=== PATIENT | female | born 1990 | race Caucasian/White ===

== ENCOUNTER 2019-01-16 10:00 | Outpatient (CLI) | payer BC, SELFPAY ==
[2019-01-16 12:09] LABS: HCG Quant, Pregnancy 15334 mIU/mL (1-3)
== END 2019-01-16 10:20 ==
PROVIDERS: PCP Nurse Practitioner Family; Visit Provider Obstetrics & Gynecology
DX: Z34.91 Encounter for supervision of normal pregnancy, unspecified, first trimester (principal)
CPT/HCPCS: 36415; 86850; 86900; 86901; 84702

== ENCOUNTER 2020-03-18 08:51 | Outpatient (REF) | payer SELFPAY ==
[2020-03-21 07:35] LABS: Patient Race White; SARS-CoV-2 RNA Undetected (Undetected); SARS-CoV-2 Specimen Source Nasal
== END 2020-03-18 09:11 ==
LOC: NCHCN 08:51
PROVIDERS: PCP Nurse Practitioner Family; Visit Provider Family Medicine
DX: Z20.828 Contact with and (suspected) exposure to other viral communicable diseases (principal)
CPT/HCPCS: U0003

== ENCOUNTER 2020-03-21 11:05 | Outpatient (CLI) | payer BC, SELFPAY ==
[2020-03-21 11:37] LABS: Abs Immature Grans 0.02 10^3/uL (0.0-0.06); Absolute Basophil Count 0.02 10^3/uL (0.0-0.2); Absolute Eosinophil Count 0.08 10^3/uL (0.0-0.7); Absolute Lymphocyte Count 1.22 10^3/uL (1.2-3.4); Absolute Monocyte Count 0.32 10^3/uL (0.1-0.8); Absolute Neutrophil Count 5.86 10^3/uL (1.2-6.7); Basophils % 0.3; Eosinophils % 1.1; HCT 39.4 % (36.0-46.0); HGB 13.6 g/dL (11.2-15.7); Immature Grans % 0.3; Lymphocytes % 16.2; MCH 30.4 pg (27.0-33.0); MCHC 34.5 % (32.0-36.0); MCV 88.1 fL (80-95); MPV 11.3 fL (8.0-11.0); Monocytes % 4.3; Neutrophils % 77.8; Nucleated RBC 0 %; Platelet Count 171 10^3/uL (130-400); RBC 4.47 10^6/uL (3.93-5.22); RDW 13.2 % (11.7-14.6); WBC 7.52 10^3/uL (4.4-10.8)
[2020-03-21 11:49] LABS: Kit/Specimen SENT
[2020-03-22 16:05] LABS: Syphilis Total Ab w/Reflex Nonreactive (Nonreactive)
[2020-03-27 10:48] LABS: Rubella IgG Ab (UVM) Positive; Varicella IgG Antibody Positive
[2020-03-27 12:56] LABS: Hepatitis B Surface Ag Negative (Negative); Hepatitis C Ab w Rflx HCV PCR Negative (Negative)
[2020-03-27 13:14] LABS: HIV-1/2 Ag & Ab Screen Negative (Negative)
[2020-04-08 04:25] LABS: Specimen WB Whole Blood
== END 2020-03-21 11:25 ==
PROVIDERS: PCP Nurse Practitioner Family; Visit Provider Advanced Practice Midwife
DX: Z34.91 Encounter for supervision of normal pregnancy, unspecified, first trimester (principal)
CPT/HCPCS: 36415; 81329; 86787; 86803; 86850; 86900; 86901; 87340; 87389; 84443; 85025; 86762; 86780

== ENCOUNTER 2020-03-21 12:27 | Outpatient (REF) | payer BC, SELFPAY ==
--- NOTE | 2020-03-21 10:30 | PAPFT_PTH ---
PATIENT: Romy Camejo LOC: [facility] U#:[id number] AGE/SX: 29/F ROOM: RE03/21/[address]: Jennie Jeffrey RN : 1990 BED: DIS: 03/21/2020 SPEC #: [id number] RECD: 03/21/20 13:30 STATUS: CARLOS REQ #: [id number] CATHERINE: 03/21/20 10:[address]: Jennie Jeffrey DEPT: [facility] Cytology RECD BY: Kianna Tolbert Tissues: 1 - CX/ENDOCX FOR PAP SMEARS Procedures: PAP THIN PREP/UVM Screening Comments: [id number] (SANGER)
[2020-03-21 15:46] LABS: *AMPHETAMINES SCREEN URINE Negative (Negative); *BARBITURATES SCREEN URINE Negative (Negative); *BENZODIAZEPINES SCREEN URINE Negative (Negative); Cannabinoids THC Negative (Negative); Cocaine Screen,Urine Negative (Negative); METHADONE URINE SCREEN Negative (Negative); OPIATES URINE SCREEN Negative (Negative)
[2020-03-21 15:51] LABS: Tricyclic Antidepressants Negative (Negative)
[2020-03-26 12:23] LABS: Chlamydia Result Negative (Negative); GC Result Negative (Negative)
[2020-03-26 12:40] LABS: Buprenorphine Negative; Norbuprenorphine Negative
== END 2020-03-21 12:47 ==
LOC: LBN 12:27
PROVIDERS: PCP Advanced Practice Midwife; Visit Provider Advanced Practice Midwife
DX: Z12.4 Encounter for screening for malignant neoplasm of cervix (principal); Z34.91 Encounter for supervision of normal pregnancy, unspecified, first trimester
CPT/HCPCS: 80307; 87491; 87591; 88142; 87086

== ENCOUNTER 2020-05-09 03:50 | Outpatient (CLI) | payer BC, SELFPAY ==
--- NOTE | 2020-05-09 07:15 | DI.US_ITS ---
EXAM: US OB 2-3 TRIMESTER CLINICAL HISTORY: routine pnc,Z34.90. TECHNIQUE: Transabdominal obstetrical ultrasound performed. COMPARISON: No previous. FINDINGS: Transabdominal obstetrical ultrasound performed. FINDINGS: Number of fetuses: One. position: Breech heart rate: 165 bpm. Placental location: Posterior. No evidence of previa. Amniotic fluid index:. Amount of fluid is within normal limits. ANATOMICAL SURVEY: Within normal limits. BIOMETRIC DATA: BPD: 4.0cm HC: 15.8cm AC: 13.0cm FL: 2.8cm Cisterna Magna: 3.8 mm Cerebellum: 1.8 cm EFW: 248 grms 87% Composite Age: 18 weeks 4 days EDC by US: 10/06/2020 Heart Rate: 165BPM IMPRESSION: 1. Single live intrauterine gestation as above. 2. Normal anatomic survey. DATA REPOSITORY:
== END 2020-05-09 04:10 ==
PROVIDERS: PCP Advanced Practice Midwife; Visit Provider Advanced Practice Midwife
DX: Z34.92 Encounter for supervision of normal pregnancy, unspecified, second trimester (principal)
CPT/HCPCS: 76805

== ENCOUNTER 2020-05-09 11:40 | Outpatient (CLI) | payer BC, SELFPAY ==
[2020-05-12 11:21] LABS: AFP 48.1 ng/mL; Calculated age at EDD 30 years; Cigarette smoking status non-Smoker; GA used in risk estimate Scan estimate; IVF Pregnancy No; Initial or repeat testing Initial testing; Insulin dependent diabetes No; Maternal Weight 187 lbs; Number of Fetuses Singleton; Physician Phone Number 802-748-7300; Prev Pregnancy w/NTD No; RECOMMENDED FOLLOW UP None.; Results Summary Normal risk
== END 2020-05-09 12:00 ==
PROVIDERS: PCP Advanced Practice Midwife; Visit Provider Advanced Practice Midwife
DX: Z34.92 Encounter for supervision of normal pregnancy, unspecified, second trimester (principal); Z36.89 Encounter for other specified antenatal screening
CPT/HCPCS: 36415; 82105

== ENCOUNTER 2020-06-28 13:41 | Outpatient (CLI) | payer BC, SELFPAY ==
[2020-06-28 16:30] VITALS: BP 118/78; PULSE 86
[2020-06-28 16:31] VITALS: BP 118/76; PULSE 86; TEMP 207.7; TEMP 97.6
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
[2020-06-28 16:35] VITALS: BP 118/76; PULSE 86; TEMP 207.7; TEMP 97.6
[2020-06-28 16:46] VITALS: BP 118/76; PULSE 86; TEMP 36.4
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
[2020-06-28 16:52] VITALS: BP 118/76; PULSE 86; TEMP 207.7; TEMP 97.6
[2020-06-28 16:56] VITALS: BP 118/76; PULSE 86; TEMP 207.7; TEMP 97.6
== END 2020-06-28 16:50 | disposition home or self-care (01) ==
LOC: BCD 13:46 → OBS 16:01
PROVIDERS: PCP Advanced Practice Midwife; Visit Provider Advanced Practice Midwife
DX: O9A.212 Injury, poisoning and certain other consequences of external causes complicating pregnancy, second trimester (principal); Z3A.25 25 weeks gestation of pregnancy
CPT/HCPCS: 59025

== ENCOUNTER 2020-06-28 16:22 | Outpatient (CLI) | payer BC, SELFPAY | END 2020-06-28 16:23 | disposition home or self-care (01) | LOC: BCD 16:23 | PROVIDERS: PCP Advanced Practice Midwife; Visit Provider Advanced Practice Midwife | DX: R69 Illness, unspecified (principal) ==

== ENCOUNTER 2020-07-25 03:26 | Outpatient (CLI) | payer BC, SELFPAY ==
[2020-07-25 08:44] LABS: HCT 34.8 % (36.0-46.0); HGB 11.4 g/dL (11.2-15.7); MCH 30.6 pg (27.0-33.0); MCHC 32.8 % (32.0-36.0); MCV 93.5 fL (80-95); MPV 11.4 fL (8.0-11.0); Platelet Count 145 10^3/uL (130-400); RBC 3.72 10^6/uL (3.93-5.22); RDW 14.6 % (11.7-14.6); RDW-SD 49.7 fL; WBC 9.29 10^3/uL (4.4-10.8)
[2020-07-25 08:59] LABS: Glucose,1 Hr (Glucola) 153 mg/dL (80-140)
== END 2020-07-25 03:27 | disposition home or self-care (01) ==
LOC: LBO 03:26
PROVIDERS: PCP Advanced Practice Midwife; Visit Provider Advanced Practice Midwife
DX: Z34.93 Encounter for supervision of normal pregnancy, unspecified, third trimester (principal); Z3A.28 28 weeks gestation of pregnancy
CPT/HCPCS: 36415; 82950; 85027

== ENCOUNTER 2020-08-01 02:58 | Outpatient (CLI) | payer BC, SELFPAY ==
[2020-08-01 08:09] LABS: Glucose,1 Hr (Glucola) 133 mg/dL (80-140)
== END 2020-08-01 02:59 | disposition home or self-care (01) ==
LOC: LBO 02:58
PROVIDERS: PCP Nurse Practitioner Family; Visit Provider Advanced Practice Midwife
DX: Z34.93 Encounter for supervision of normal pregnancy, unspecified, third trimester (principal)
CPT/HCPCS: 36415; 82950

== ENCOUNTER 2020-08-20 03:24 | Outpatient (CLI) | payer BC, SELFPAY ==
[2020-08-20 08:47] LABS: Glucose,1 Hr (Glucola) 173 mg/dL (80-140)
--- NOTE | 2020-08-29 10:33 | W.DIABETESNO ---
Date of service: 08/29/20 Time of Service: 10:33 Diabetes Note NOTE: Financial Adviser left message and email for Romy to discuss nutritional strategies for diet controlled GDM. Romy emailed aligner typewriter back. Provided Romy with written material and discussed importance of QID finger sticks and importance of bringing blood sugar logs for visits. Romy is familiar with diabetes as daughter has type 1 DM. Will meet with Romy at next [facility] appt. Time Spent in Nutritional Counseling and Treatment: 0
--- NOTE | 2020-09-05 12:29 | W.DIABETESNO ---
Date of service: 09/05/20 Time of Service: 12:29 Diabetes Note NOTE: Met with Romy at [facility]. She was recently dx with GDM. Reviewed blood sugar logs, most levels wnl, most days QID testing. Provided written materials and blood sugar goals with meal plans. Overall, Romy is very knowlegeable about DM, exchanges and simple sugars. GDM diet controlled at this time. Time Spent in Nutritional Counseling and Treatment: 15
== END 2020-08-20 03:25 | disposition home or self-care (01) ==
LOC: LBO 03:24
PROVIDERS: PCP Nurse Practitioner Family; Visit Provider Advanced Practice Midwife
DX: Z34.93 Encounter for supervision of normal pregnancy, unspecified, third trimester (principal); Z3A.32 32 weeks gestation of pregnancy
CPT/HCPCS: 36415; 82950

== ENCOUNTER 2020-09-12 03:30 | Outpatient (CLI) | payer BC, SELFPAY ==
--- NOTE | 2020-09-12 07:15 | DI.US_ITS ---
EXAM: US OB SHAN WEIGHT CLINICAL HISTORY: 36 wk wt,FLUID CHECK,GEST DIABETES,O24.419. TECHNIQUE: Transabdominal obstetrical ultrasound performed. COMPARISON: US US OB 2-3 TRIMESTER from 05/09/2020 US US OB 2-3 TRIMESTER from 05/09/2020 FINDINGS:: Number of fetuses: One. position: Vertex. Placental location: Posterior. No evidence of previa. BIOMETRIC DATA: BPD: 90 mm = 36+ 3 weeks HC: 324mm = 36+ 5 weeks AC: 327mm = 36+ 4 weeks FL: 71 mm = 36+ 1 weeks EFW: 2948 Gms = 68% Composite Age: 36+ 3 weeks EDC: 07 Oct 2020 Heart Rate: 145BPM Amniotic fluid index: 20.7 cm. Amount of fluid is at the upper normal limits. IMPRESSION: size and weight are within the expected range. DATA REPOSITORY:
== END 2020-09-12 03:50 ==
PROVIDERS: PCP Nurse Practitioner Family; Visit Provider Advanced Practice Midwife
DX: O24.410 Gestational diabetes mellitus in pregnancy, diet controlled (principal); Z3A.36 36 weeks gestation of pregnancy
CPT/HCPCS: 76816

== ENCOUNTER 2020-09-12 16:43 | Outpatient (REF) | payer BC, SELFPAY ==
[2020-09-12 18:28] LABS: *AMPHETAMINES SCREEN URINE Negative (Negative); *BARBITURATES SCREEN URINE Negative (Negative); *BENZODIAZEPINES SCREEN URINE Negative (Negative); Cannabinoids THC Negative (Negative); Cocaine Screen,Urine Negative (Negative); METHADONE URINE SCREEN Negative (Negative); OPIATES URINE SCREEN Negative (Negative)
[2020-09-12 18:32] LABS: Tricyclic Antidepressants Negative (Negative)
[2020-09-18 13:08] LABS: Buprenorphine Negative ng/mL (Cutoff: 5.0); Norbuprenorphine Negative ng/mL (Cutoff: 2.5)
== END 2020-09-12 16:44 | disposition home or self-care (01) ==
LOC: LBN 16:43
PROVIDERS: PCP Nurse Practitioner Family; Visit Provider Advanced Practice Midwife
DX: Z34.93 Encounter for supervision of normal pregnancy, unspecified, third trimester (principal); Z3A.35 35 weeks gestation of pregnancy
CPT/HCPCS: 80307

== ENCOUNTER 2020-09-17 11:17 | Outpatient (REF) | payer BC, SELFPAY | END 2020-09-17 11:18 | disposition home or self-care (01) | LOC: LBN 11:17 | PROVIDERS: PCP Nurse Practitioner Family; Visit Provider Advanced Practice Midwife | DX: Z34.93 Encounter for supervision of normal pregnancy, unspecified, third trimester (principal); Z36.85 Encounter for antenatal screening for Streptococcus B; Z3A.36 36 weeks gestation of pregnancy | CPT/HCPCS: 87081 ==

== ENCOUNTER 2020-10-02 18:43 | Inpatient (IN) | payer BC, SELFPAY ==
[2020-10-02] VITALS (7 sets, daily range): BP systolic 120–135; BP diastolic 63–78; PULSE 57–111; RESP 18; TEMP 36.4–36.8
--- NOTE | 2020-10-02 16:56 | W.OBNST ---
Date of service: 10/02/20 Time of Service: 16:56 NST Evaluation Reason for NST Reasons for Nonstress Test: OTHER, SEE COMMENT Reason for NST Other: rule out labor Gestational Age Gestational Age in Weeks and Days: 38 Weeks and 5Days Test and Monitor Explained Test/Monitor Explained: Test Explained, Monitor Explained and Patient Verbalized Understanding Vital Signs Blood Pressure: 124/78 Pulse: 104 Temperature: 98.2 F Urine Results Urine Protein: Negative Urine Ketones: Negative Urine Glucose: Negative Urine Blood: Negative NST Information Date on Monitor: 10/02/20 Time on Monitor: 16:01 Date off Monitor: 10/02/20 Time off Monitor: 16:30 Total Time on Monitor: 29 NST Interventions: PO Hydration NST Evaluation Patient States Movement: Present FHR Baseline: 140 Variability: Moderate 6-25 bpm Accelerations: 10x10 Decelerations: None NST Results: Reactive Note NST Note Note: will have patient ambulate and reassess cervix for changes to determine if admission is indicated. NST is reactive and reassuring. CAT I. Contractions mild to moderate and 3-7 minutes apart. Cervix 3/70/-2 posterior and soft. NST Reviewed and Verified by: Basia Price
--- NOTE | 2020-10-02 18:45 | HPE_ITS ---
Date of service: 10/02/20 Time of Service: 18:45 Assessment and Plan Assessment and plan (1) Active labor at term: Start date: 10/02/20 Start time: 18:50 Status: Acute Assessment and plan: admit and do labs, will support labor and expect NVD. LAVINIA (2) Gestational diabetes mellitus (GDM) affecting second : Start date: 10/02/20 Start time: 18:50 Status: Acute Assessment and plan: will get CMP with initial labs, BG's have been well controlled throughout third trimester. KH OB-HPI Labor/Delivery History of Present Illness Reason for Visit: labor at term Chief Complaint: Uterine Contractions. ATILIO Calculator Estimated Delivery Date Method Current WG Current Estimate 10/11/20 Ultrasound #1 38w 5d Other Estimates 10/07/20 LMP (Certain) 39w 2d Comments: contractions began at 0100 this date but became more regular and intense this afternoon. No ROM or bloody show. Baby active. Has been well controlled GDM. Admitted after repeat VE on outpatient status with change from to 4.5//-2.KH History of Present Expected Delivery Route/Plan - CNM FOB/ - Isreal Almeida (2nd baby together) BB no circ GBS negative Would like to use the birthing tub GDM dx'ed at 32 wks: well controlled by diet, will plan IOL after 40 wks if undelivered Specific Issues/Plan 1. Daughter Lisseth Dx with Type 1 DM at 1.5yo. 2. CF & SMA neg, [place] low prob x3, male 3. 05/09/20: AFP= neg. al 4. Elevated 1-hr GTT - 153, 3-hr test recommended. Romy would like to repeat the 1-hr GTT. 4a. Repeat glucola result 133. Discussed borderline status of result, pt declines 3 hr GTT, agrees repeat 1 hr @ 32 wks 4b. Glucola at 32 wks is 173, declines 3 hr GTT, will begin QID home monitoring, ref'ed to dietary, RTO @ 33 wks for sugar review 4c. Glucose all WNL - testing 2-3 times per week. 5. Symphysis pubis injury/ Groin discomfort- referred to PT. seeing a chiropractor 6. [employer]. Update: keanu has weaned herself at about her 1 yr birthday 7. Plans to get covid vaccine while . Her partner will get second vaccine September 29. Assessment: History Reviewed & Current Informed Consent Informed Consent: Risk,Benefits,Alternatives Discussed Review of Systems All systems reviewed & are unremarkable except as noted in HPI and below PFSH Medical History Migraine Positive test Surgical History Dilation and curettage Family History (Updated 02/27/20 @ 11:01 by Amanda Rasheed MD) Mother Thyroid disorder Sister Thyroid disorder Daughter Diabetes Type 1 DM diagnosed @ 1.5yo. Social History (Updated 02/27/20 @ 14:18 by Amanda Rasheed MD) Smoking/Tobacco Use Status: Never Smoking risk assessment performed?: Yes Alcohol Intake: never Drug use: Never Household members: spouse, children and other Details: Maya-Jesus. 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 Date GA/Weeks # Outcome Route Wgt Sex Labor Lgth Anesthes ia Location Prov Complic 08/08/17 38 No Successful vaginal 8 lb 14 oz Female 12 hrs nvrh al 01/16/19 9 No Unsuccessful Delivery Date: 08/08/17 symphysis pubis and coccygeal pain after delivery. Back labor. Long second stage. Used the tub. Armando PinkBasia styles Delivery Date: 01/16/19 miscarriage. Pt reports 3 early 1st trimester SABs since 12/2018 Amanda Rasheed Allergies and Home Medications Allergies Allergy/AdvReac Type Severity Reaction Status Date / Time No Known Allergies Allergy Verified 10/01/20 08:30 Home Medications Medication Instructions Recorded Confirmed Type blood sugar diagnostic #100 ea 08/20/20 09/05/20 Rx blood-glucose meter #1 ea 08/20/20 09/05/20 Rx lancets 28 gauge #100 ea 08/20/20 09/05/20 Rx vitamin 1 tab PO DAILY tab-cap 08/20/20 09/05/20 History no.76-iron,carbonyl 29 mg iron-folic acid 1 mg tablet Exam Physical Exam Vital Signs Reviewed: Yes Constitutional Comments: working well with contractions every 2-4 minutes with moderate intensity. Detailed Labor and Delivery Exam Dilation: 4.5 Effacement (%): 80 station: -2 Cervix position: posterior Consistency: soft Cunningham Score: Cervical Points Exam 0 1 2 3 Dilation Closed 1-2cm 3-4 cm 5-6cm Effacement 0-30% 40-50% 60-70% 80% Consistency Firm Medium Soft Station -3 -2 -1,0 +1,+2 Position Posterior Mid Anterior CUNN[place]AM Score(Cervical Ripeness Score): 9 Amniotic Membrane Status: Intact Monitor Mode: Palpation Contraction Frequency(min): 2-4 Contraction Duration(sec): 60-90 Contraction Intensity: Moderate Fetus A Est. Weight: 7 lb 6 oz Assessment Note: currently off monitor to ambulate and be in shower, recent tracing was CAT I, reactive and reassuring. will obtain doppler FHT's Risk Assessment Risk for Shoulder Dystocia Historical/Initial OB: NEGATIVE FOR: Pelvic Abnormality, Pre- BMI>30, Previous Shoulder Dystocia or Previous Macrosomia 40 Weeks: NEGATIVE FOR: EFW> 4500 gms, Maternal Weight Gain >40lb or Post Dates Increased Risk?: No Counselin03/21/20 @ iob low risk al Date/Initial: 03/21/20 io low risk Delivery Plan @ 40 wks: 10/02/13 expect NVD. Risk for Pre-Eclampsia Daily Dose ASA Indicated: No Date Initiated/Initials: 03/21/20 al Yes, if one or more: NEGATIVE FOR: Hx Pre-E/Gest HTN, Chronic HTN, Multiple Gestation, Pre-gestational DM, Renal Disease, Systemic Lupus or APA Syndrome Yes, if 2 or more: NEGATIVE FOR: Nulliparity, Age>= 35 yrs, >10yr btwn pregnancies, BMI>30, ethinicty, Mother/Sister w/ Pre-E or Previous IUGR Risk for Post- Hemorrhage Initial: NEGATIVE FOR: Multiple Gestation, Previous PPH, Known Clotting Deficiency, Grand Multiparity or Anticoagulation At Risk?: No Counseled re: Active Management: Yes Date/Initials: 10/02/13KH Risks Reviewed Risks Reviewed Upon Admission: Yes
[2020-10-02 19:21] LABS: HCT 33.5 % (36.0-46.0); HGB 10.6 g/dL (11.2-15.7); MCH 27.9 pg (27.0-33.0); MCHC 31.6 % (32.0-36.0); MCV 88.2 fL (80-95); MPV 11.7 fL (8.0-11.0); Platelet Count 143 10^3/uL (130-400); RDW 15.9 % (11.7-14.6); RDW-SD 50.4 fL
[2020-10-02 19:33] LABS: ALT 17 U/L (14-59); AST 16 U/L (15-37); Albumin 2.8 g/dL (3.4-5.0); Alkaline Phosphatase 224 U/L (46-116); Anion Gap 12.9 mmol/L (3-11); BUN 8 mg/dL (7-18); Bilirubin, Total 0.5 mg/dL (0.2-1.0); CO2 21.1 mmol/L (21.0-32.0); CREATININE 0.7 mg/dL (0.55-1.02); Calcium 8.6 mg/dL (8.5-10.1); Chloride 105 mmol/L (98-107); Glucose 102 mg/dL (74-106); Potassium 3.7 mmol/L (3.5-5.1); Sodium 139 mmol/L (136-145); Total Protein 6.7 g/dL (6.4-8.2)
[2020-10-02 20:02] LABS: Source Nasal/Nares
[2020-10-02 20:39] LABS: COVID-19 PCR Negative (Negative)
--- NOTE | 2020-10-02 23:10 | W.PM.OBNL1 ---
Date of service: 10/02/20 Time of Service: 23:10 Informed Consent Informed Consent: Risk,Benefits,Alternatives Discussed Pelvic Exam Dilation: 5 Effacement (%): 90 station: -2 Cervix Position: posterior Consistency: soft Vaginal Exam Presentation: Cephalic Fetus A Heart Rate Baseline: 130 Presentation: Vertex Variability: Moderate (6-25 BPM) Categories: Category I Accelerations: 15 X 15 Decelerations: None Amniotic Membrane Status: Intact Assessment and Plan Assessment and plan (1) Labor, prolonged latent phase: Status: Acute Assessment and plan: will continue with expectant management, patient declines therapeutic rest. plan to reassess in 2 hours or prn. As maternal status is satisfactory and patient is 38w5d tech writer does not feel intervention is required at this time. KH Objective Abnormal lab results 10/02/20 10/02/20 Range/Units 19:11 19:11 RBC 3.80 L (3.93-5.22) 10^6/uL Hgb 10.6 L (11.2-15.7) g/dL Hct 33.5 L (36.0-46.0) % MCHC 31.6 L (32.0-36.0) % RDW 15.9 H (11.7-14.6) % MPV 11.7 H (8.0-11.0) fL Anion Gap 12.9 H (3-11) mmol/L Alkaline Phosphatase 224 H (46-116) U/L Albumin 2.8 L (3.4-5.0) g/dL Temp Pulse Resp BP 97.6 F 111 H 18 120/74 10/02/20 21:46 10/02/20 23:05 10/02/20 21:46 10/02/20 23:05 Laboratory Results WBC 9.40 10^3/uL (4.4-10.8) 10/02/20 19:11 RBC 3.80 10^6/uL (3.93-5.22) L 10/02/20 19:11 Hgb 10.6 g/dL (11.2-15.7) L 10/02/20 19:11 Hct 33.5 % (36.0-46.0) L 10/02/20 19:11 MCV 88.2 fL (80-95) 10/02/20 19:11 MCH 27.9 pg (27.0-33.0) 10/02/20 19:11 MCHC 31.6 % (32.0-36.0) L 10/02/20 19:11 RDW 15.9 % (11.7-14.6) H 10/02/20 19:11 Plt Count 143 10^3/uL (130-400) 10/02/20 19:11 MPV 11.7 fL (8.0-11.0) H 10/02/20 19:11 Sodium 139 mmol/L (136-145) 10/02/20 19:11 Potassium 3.7 mmol/L (3.5-5.1) 10/02/20 19:11 Chloride 105 mmol/L (98-107) 10/02/20 19:11 Carbon Dioxide 21.1 mmol/L (21.0-32.0) 10/02/20 19:11 Anion Gap 12.9 mmol/L (3-11) H 10/02/20 19:11 BUN 8 mg/dL (7-18) 10/02/20 19:11 Creatinine 0.7 mg/dL (0.55-1.02) 10/02/20 19:11 Estimated GFR/1.73 m2 >= 60.00 (mL/min/1.73m2) 10/02/20 19:11 Glucose 102 mg/dL (74-106) 10/02/20 19:11 Calcium 8.6 mg/dL (8.5-10.1) 10/02/20 19:11 Total Bilirubin 0.5 mg/dL (0.2-1.0) 10/02/20 19:11 AST 16 U/L (15-37) 10/02/20 19:11 ALT 17 U/L (14-59) 10/02/20 19:11 Alkaline Phosphatase 224 U/L (46-116) H 10/02/20 19:11 Total Protein 6.7 g/dL (6.4-8.2) 10/02/20 19:11 Albumin 2.8 g/dL (3.4-5.0) L 10/02/20 19:11 COVID-19 Source Nasal/nares 10/02/20 19:50 SARS-CoV-2 (PCR) Negative (Negative) 10/02/20 19:50 Patient ABO/Rh A Positive 10/02/20 19:11 Antibody Screen Negative 10/02/20 19:11 Subjective Interval history since last seen: states she feels contractions are getting stronger. Denies ROM or bloody show. Has been in tub for pain relief and is now in bed for tracing then plans to go to the shower. States she feels she has strength to continue with this pattern vs therapeutic rest. KH Results Hemoglobin/Hematocrit: Hgb 10.6 g/dL (11.2-15.7) L 10/02/20 19:11 Hct 33.5 % (36.0-46.0) L 10/02/20 19:11 Abnormal Lab Findings: Abnormal Labs 10/02/20 10/02/20 19:11 19:11 RBC 3.80 L Hgb 10.6 L Hct 33.5 L MCHC 31.6 L RDW 15.9 H MPV 11.7 H Anion Gap 12.9 H Alkaline Phosphatase 224 H Albumin 2.8 L
[2020-10-03] VITALS (11 sets, daily range): BP systolic 103–120; BP diastolic 54–71; PULSE 83–131; RESP 16–18; TEMP 36.7–37.1
--- NOTE | 2020-10-03 02:47 | OBVDS_ITS ---
Date of service: 10/03/20 Time of Service: 02:47 OB Labor/ Delivery Information Baby A Delivery Delivery Method: Spontaneaous Presentation: Vertex Cephalic Position: Vertex Vertex Position: Left Occipital Anterior Cord Description-Baby A: 3 Vessels Amniotic Fluid: Clear Estimated Blood Loss: 300 Delivery Outcome: Liveborn Complications: none Infant Transferred: Remains with Mother Note: Live male deliver CAREN over 1st degree midline perineal laceration after excellent bearing down efforts of Mother. Shoulders deliver easily and baby is brought onto Mother's abdomen. 9 at 1 minute and 9 at 10 minutes. 3 vessel cord noted. Cord was double clamped and cut by FOB when it ceased pulsations. Placenta delivered via rogers mechanism, intact. Fundus firms to U-2 with massage and 10 units pitocin IM. Laceration is hemostatic but patient preferred edges be brought together so area was infiltrated wtih 1 cc Lidocaine and repaired with 1 stitch of 3.0 Vicryl. [id number] cc. Sponge, needle and instrument count are correct. Mother and Father are shown placenta per their request and they intend to take it home to plant a tree with it. Will be sent to lab until discharge. Cord blood sent to lab as well. Positive family bonding is noted. See completed delivery summary for weight. Mother and baby are in satisfactory condition, expect normal PP course. Providers Nurse Wigs Salesperson: Basia Price Labor/Delivery Information Number of Babies in Womb: 1 Steroids Given: None Reason Steroids Not Administered: N/A Group Beta Strep: Negative Antibiotics Administered: No Stages of Labor Onset of Labor Date: 10/02/20 Onset of Labor Time: 02:00
[2020-10-03] MEDS: Acetaminophen 325 MG TAB 650 MG PO ×2 (05:00→12:09)
[2020-10-03] MEDS: Ibuprofen 600 MG TAB PO (05:00)
--- NOTE | 2020-10-03 08:59 | OBPPV_ITS ---
Date of service: 10/03/20 Time of Service: 08:59 Assessment and Plan Assessment and plan (1) care following vaginal delivery: Start date: 10/03/20 Start time: 09:02 Status: Acute Assessment and plan: continue present management. Plan discharge this afternoon. Patient will schedule a 2 week PP visit in office or by telehealth. LAVINIA Subjective Subjective Interval history: patient desires 12 hour PP discharge as her toddler at home is diabetic and it is best to keep routine the same. She has good support from who is off work for next 2 weeks. Has no complaints this morning. Tolerating regular diet well. Out of bed without assist. Minimal lochia. is going well.LAVINIA Patient comments: No complaints [place] baby status: Doing well Exam Physical Exam Vital signs: Temp Pulse Resp BP 98.1 F 83 18 103/60 10/03/20 07:55 10/03/20 07:55 10/03/20 07:55 10/03/20 07:55 Vital Signs Reviewed: Yes Constitutional Constitutional: no acute distress HEENT Exam HEENT Exam: Normal Neck Exam Neck Exam: Normal Respiratory Exam Respiratory Exam: Normal Cardiovascular Exam Cardiovascular Exam: Normal Fundal Exam Fundus: Below Umbilicus and Firm Rectal Exam Rectal Exam: Not Done Exam Patient deferred: external exam and perineal exam (normal) Extremities Exam Extremity Exam: Normal Skin Exam Skin Exam: Normal Neurological Exam Neurological Exam: Normal Psychiatric Exam Psychiatric Exam: Normal Results Hemoglobin/Hematocrit: Hgb 10.6 g/dL (11.2-15.7) L 10/02/20 19:11 Hct 33.5 % (36.0-46.0) L 10/02/20 19:11 Abnormal Lab Findings: Abnormal Labs 10/02/20 10/02/20 19:11 19:11 RBC 3.80 L Hgb 10.6 L Hct 33.5 L MCHC 31.6 L RDW 15.9 H MPV 11.7 H Anion Gap 12.9 H Alkaline Phosphatase 224 H Albumin 2.8 L
--- NOTE | 2020-10-03 10:49 | W.PM.OBDISCH ---
Date of service: 10/03/20 Time of Service: 10:49 DS: Diagnosis Discharge Diagnosis (1) care following vaginal delivery: Status: Acute Discharge Plan Disposition Patient Disposition: HOME Condition: Good Discharge Details Reason For Visit: labor at term Admit Date/Time: 10/02/20 18:43 Admit Provider: Basai Price Attending Provider: Basia Price Primary Care Provider: Sabrina Concepcion Hospital Course Hospital Course: Normal labor and delivery course. Uncomplicated PP course. Desires early 12 hour discharge from hospital and Pediatric providers agree to this plan. Home Meds and New Rx's Prescriptions: No Action (DME) blood-glucose meter [FreeStyle Lite Meter] Kit See Rx Instructions .ROUTE .MEDSUPPLY Qty: 1 RF: 0 (DME) FreeStyle Lite Strips Strip See Rx Instructions .ROUTE .MEDSUPPLY Qty: 100 RF: 3 (DME) lancets [FreeStyle Lancets] 28 gauge misc See Rx Instructions .ROUTE .MEDSUPPLY Qty: 100 RF: 3 Prenatabs Rx 29 mg iron- 1 mg tablet 1 tab PO DAILY RF: 0 Discharge Instructions Activity:: Activity as Tolerated Equipment/Supplies:: No Equipment Needed Diet:: As Tolerated Discharge Orders Discharge Orders: Discharge Order (Routine); Ordered 10/03/20 Ordered By: Basia Price OB:DS Summary Summary Vaginal Delivery Method: Spontaneaous Contraception Discussed Contraception Discussed: Yes Contraceptive Plan: IUD (planned for 6 weeks PP), [employer] Infant Gender-Baby A: Male Status at Discharge Functional status at discharge: independent ambulation Overall status at discharge: patient is back to baseline Mental Status: mental status grossly normal Speech and Movement: speech and movement normal Mood: congruent mood Affect: normal affect Exam Physical Exam Vital signs: Temp Pulse Resp BP 98.1 F 83 18 103/60 10/03/20 07:55 10/03/20 07:55 10/03/20 07:55 10/03/20 07:55 Vital Signs Reviewed: Yes Narrative: Normal VS noted. LAVINIA Constitutional Constitutional: no acute distress Comments: meeting all PP milestones, independent in her ADL's, has good support system at home.LAVINIA HEENT Exam HEENT Exam: Normal Neck Exam Neck Exam: Normal Breast Exam normal exam bilaterally: Breast Exam: Normal Nipple Exam: Normal Respiratory Exam Respiratory Exam: Normal Cardiovascular Exam Cardiovascular Exam: Normal Fundal Exam Fundus: Below Umbilicus and Firm Rectal Exam Rectal Exam: Not Done Exam Patient deferred: external exam (normal ) Extremities Exam Extremity Exam: Normal Skin Exam Skin Exam: Normal Neurological Exam Neurological Exam: Normal Psychiatric Exam Psychiatric Exam: Normal [facility] Medical History Migraine Positive test Surgical History Dilation and curettage Family History Mother Thyroid disorder Sister Thyroid disorder Daughter Diabetes Type 1 DM diagnosed @ 1.5yo. 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 Date GA/Weeks # Outcome Route Wgt Sex Labor Lgth Anesthesia Location Prov Complic 08/08/17 38 No Successful vaginal 8 lb 14 oz Female 12 hrs nvrh al 01/16/19 9 No Unsuccessful Delivery Date: 08/08/17 symphysis pubis and coccygeal pain after delivery. Back labor. Long second stage. Used the tub. Armando PinkBasia styles Delivery Date: 01/16/19 miscarriage. Pt reports 3 early 1st trimester SABs since 12/2018 Amanda Rasheed DS: Data Vitals/I&O Vitals and I&O: Vital Signs Temperature 98.1 F 10/03/20 07:55 Pulse 83 10/03/20 07:55 Respiratory Rate 18 10/03/20 07:55 Blood Pressure 103/60 10/03/20 07:55 Blood Pressure Mean 74 10/03/20 07:55 Pain Level 3 10/03/20 05:00 Intake & Output 10/02/20 10/02/20 10/03/20 11:59 23:59 11:59 Intake Total 1100 / 3100 2000 / 2000 Output Total 1500 / 1900 600 / 600 Balance -400 / 1200 1400 / 1400 Weight 207 lb Intake: Oral 1100 / 3100 2000 / 2000 Output: Urine 1500 / 1900 600 / 600 Other: Urine Color Yellow Data Completed and Pending Labs on day of discharge: Labs from last 24 hours 10/02/20 10/02/20 10/02/20 19:50 19:11 19:11 WBC RBC Hgb Hct MCV MCH MCHC RDW Plt Count MPV Sodium 139 Potassium 3.7 Chloride 105 Carbon Dioxide 21.1 Anion Gap 12.9 H BUN 8 Creatinine 0.7 Estimated GFR/1.73 m2 >= 60.00 Glucose 102 Calcium 8.6 Total Bilirubin 0.5 AST 16 ALT 17 Alkaline Phosphatase 224 H Total Protein 6.7 Albumin 2.8 L COVID-19 Source Nasal/nares SARS-CoV-2 (PCR) Negative Patient ABO/Rh A Positive Antibody Screen Negative 10/02/20 19:11 WBC 9.40 RBC 3.80 L Hgb 10.6 L Hct 33.5 L MCV 88.2 MCH 27.9 MCHC 31.6 L RDW 15.9 H Plt Count 143 MPV 11.7 H Sodium Potassium Chloride Carbon Dioxide Anion Gap BUN Creatinine Estimated GFR/1.73 m2 Glucose Calcium Total Bilirubin AST ALT Alkaline Phosphatase Total Protein Albumin COVID-19 Source SARS-CoV-2 (PCR) Patient ABO/Rh Antibody Screen
== END 2020-10-03 16:30 | disposition home or self-care (01) | DRG 807 ==
LOC: BCD 18:50 → OBS 18:50
PROVIDERS: Admitting Provider Advanced Practice Midwife; PCP Nurse Practitioner Family; Visit Provider Advanced Practice Midwife
DX: O24.410 Gestational diabetes mellitus in pregnancy, diet controlled (principal); Z37.0 Single live birth; Z3A.38 38 weeks gestation of pregnancy; O70.0 First degree perineal laceration during delivery
CPT/HCPCS: 36415; 80053; 85027; 86850; 86900; 86901; 87635; J3490

== ENCOUNTER 2021-06-29 09:32 | Outpatient (REF) | payer OTHER, SELFPAY ==
--- NOTE | 2021-06-29 08:30 | SKI_PTH ---
PATIENT: [facility]amejo [id number] AGE/SX: 30/F ROOM: RE06/29/[address]: Jaylen Dominguez : 1990 BED: DIS: 06/29/2021 SPEC #: [id number] RECD: 06/29/21 15:48 STATUS: CARLOS REAbelardo #: [id number] CATHERINE: 06/29/21 08:[address]: Jaylen Dominguez DEPT: Surgical Specimen RECD BY: Kianna Tolbert ENTERED: 06/29/21 15:49 SP TYPE: ABIODUN QUINN DR: Sabrina Concepcion Tissues: 1 - SKIN BIOPSY(SHAVE/PUNCH) 2 - SKIN BIOPSY(SHAVE/PUNCH) Procedures: SKIN LEVEL 4 Comments: [id number]
== END 2021-06-29 09:33 | disposition home or self-care (01) ==
LOC: NCHCN 09:32
PROVIDERS: PCP Nurse Practitioner Family; Visit Provider Family Medicine
DX: D22.4 Melanocytic nevi of scalp and neck (principal); D22.5 Melanocytic nevi of trunk
CPT/HCPCS: 88305

== ENCOUNTER 2021-12-25 20:19 | Emergency (ER) | payer OTHER, SELFPAY ==
[2021-12-25 20:26] VITALS: BP 124/72; PULSE 100; RESP 18; TEMP 36.6; O2SAT 99
[2021-12-25] MEDS: predniSONE 20 MG TAB 40 MG PO (21:40)
[2021-12-25] MEDS: Acetaminophen 325 MG TAB 650 MG PO (21:40)
--- NOTE | 2021-12-26 16:12 | W.ED.GENAD ---
Discharge Plan Disposition Patient Disposition: HOME Condition: Stable Discharge Details Clinical Impression: Thoracic radiculopathy Primary Care Provider: Sabrina Concepcion ED Provider: Kianna Sommer Home Meds and New Rx's Prescriptions: New prednisone 20 mg tablet 40 mg PO DAILY Qty: 10 0RF Discharge Instructions Additional Instructions: Refrain from heavy lifting follow-up with pcp on tuesday for reassessment Take Medrol this prescribed, you may fill this tomorrow You may take oxycodone as needed, this medication is addictive and can cause constipation, use caution while taking it Referrals: Sabrina Concepcion [Primary Care Provider] - Discharge Data Discharge Date/Time-TO BE ENTERED AT DEPARTURE: 12/25/21 21:59 Medical Decision Making Patient appears well, no evidence of cauda equina syndrome, concern for thoracic radiculopathy Discussed decreasing the amount of weight she is lifting daily Return precautions discussed Outpatient MRI without improvement of symptoms at the discretion of patient's provider Placed on Medrol Dosepak for home Mobic Tylenol as needed for discomfort Return precautions discussed and patient expressed understanding Medical Records Medical records reviewed: Yes I reviewed the patient's medical records. Lab Data Lab results reviewed: Yes I reviewed the patient's lab results. HPI General Date/Time Provider Initiated Documentation: 12/25/21 20:35. HPI Narrative: This 31-year-old female presents with report of intermittent worsening mid back pain which she has had for the past several months but worse in the past week. Patient states that she held her spine all day yesterday and today went to sit at work and the pain worsened dramatically. She states that she had tingling in her arms and legs. She denies any chest pain or shortness of breath. She denies any abdominal pain. She denies any pain with deep breathing or changes in bowel or bladder. Denies history of illicit drug use or fever. Worsened with position changes. Denies any groin numbness. Related Data Home Medications Medication Instructions Recorded Confirmed prednisone 20 mg tablet 40 mg PO DAILY #10 tabs 12/26/21 Previous Rx's Medication Instructions Recorded prednisone 20 mg tablet 40 mg PO DAILY #10 tabs 12/26/21 Allergies Allergy/AdvReac Type Severity Reaction Status Date / Time No Known Allergies Allergy Verified 12/25/21 20:28 General Stated Complaint: Nk/Back Pain KENNEY: 3 Review of Systems All systems reviewed & are unremarkable except as noted in HPI and below PFSH All Active Problems (Updated 12/25/21 @ 21:42 by GARCIA Sanches) Thoracic radiculopathy (Acute) Anemia, mild (Acute) History of gestational diabetes (Acute) General counseling and advice for contraceptive management (Acute) Lactating mother (Acute) Amenorrhea (Acute) (Acute) Gestational diabetes mellitus (GDM) affecting second (Acute) Active labor at term (Acute) Labor, prolonged latent phase (Acute) care following vaginal delivery (Acute) Elevated glucose level (Acute) Medical History Active labor at term Amenorrhea Gestational diabetes mellitus (GDM) affecting second Labor, prolonged latent phase Migraine Positive test Surgical History Dilation and curettage Family History Mother Thyroid disorder Sister Thyroid disorder Daughter Diabetes Type 1 DM diagnosed @ 1.5yo. Social History Smoking/Tobacco Use Status: Never Smoking risk assessment performed?: Yes Alcohol Intake: never Drug use: Never Substance use type: does not use Household members: spouse, children and other Details: Maya-Johnathan. 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 Date GA/Weeks # Preg Succ Route Wgt Sex Labor Lgth Anesthesia Location Prov Complic 08/08/17 38 No vaginal 4025.632 g Female 12 hrs nvrh al 01/16/19 9 No 10/03/20 38 No vaginal Male AMANDA Aldana Delivery Date: 08/08/17 Last Updated by: Basia Mulkern, CNM symphysis pubis and coccygeal pain after delivery. Back labor. Long second stage. Used the tub. Armando Delivery Date: 01/16/19 Last Updated by: Amanda Rasheed M.D. miscarriage. Pt reports 3 early 1st trimester SABs since 12/2018 Delivery Date: 10/03/20 Last Updated by: LAYNE Abdalla Exam Const General: cooperative, comfortable and no acute distress Eyes Pupils: PERRL Resp Effort & Inspection: normal respiratory effort Auscultation: clear to auscultation bilaterally Cardio Rate: regular rate GI Inspection: normal to inspection Other: non-tender no abdominal bruit or pulsatile mass, no cva tenderness Back/Spine/Pelvis Back/spine/pelvis image: 1. tenderness with palpation Skin General skin exam: no rashes or lesions noted Neuro General: patient alert Gait: antalgic Motor: muscle tone normal throughout and strength 5/5 throughout Sensory Exam: no sensory deficits noted Other: negative SLR bilaterally neg babinski bilaterally dtr's intact to bilateral upper and lower extremities Extrem Other: distal pulses intact Course Vital Signs Vital signs: Vital Signs Temperature 36.6 C 12/25/21 20:26 Pulse 100 H 12/25/21 20:26 Respiratory Rate 18 12/25/21 20:26 Blood Pressure 124/72 12/25/21 20:26 Pulse Oximetry 99 12/25/21 20:26 Temperature 36.6 C 12/25/21 20:26 Pulse 100 H 12/25/21 20:26 Respiratory Rate 18 12/25/21 20:26 Respiratory Effort 12/25/21 20:34 Blood Pressure 124/72 12/25/21 20:26 Pulse Oximetry 99 12/25/21 20:26 Pain Level 4 12/25/21 20:26
== END 2021-12-25 21:59 | disposition home or self-care (01) ==
PROVIDERS: Emergency Provider Physician Assistant; PCP Nurse Practitioner Family
DX: M54.14 Radiculopathy, thoracic region (principal)
CPT/HCPCS: 99283; 99284; J7512

== ENCOUNTER 2021-12-28 09:37 | Inpatient (IN) | payer OTHER, SELFPAY ==
[2021-12-28] VITALS (11 sets, daily range): BP systolic 103–125; BP diastolic 64–74; PULSE 63–97; RESP 14–18; TEMP 36.6–38.6; O2SAT 97–100
--- NOTE | 2021-12-28 11:00 | RT.EKG_ITS ---
APPROVED REPORT Exam: Resting ECG Reason for Exam: burning pain from epigastrum Patient Location: E HR:75 bpm ECG Measurements Heart Rate 75 AXIS RI 148 P 58 QRSd 98 QRS 54 QT 383 T 34 QTc 428 Conclusion Sinus rhythm...normal P axis, V-rate 60- 99 sinus rhythm, normal axis, normal intervals, t wave inversion III
--- NOTE | 2021-12-28 11:04 | ED.GENADUL_ITS ---
Discharge Plan Disposition Patient Disposition: [facility] INPATIENT Condition: Poor Discharge Details Chief Complaint: Abd Prob Clinical Impression: Acute gallstone pancreatitis Admit Date/Time: 12/28/21 15:25 Admit Provider: Linda Hernandez Attending Provider: Linda Hernandez ED Provider: Lidia Mercedes Discharge Instructions Activity:: Activity as Tolerated Equipment/Supplies:: No Equipment Needed Diet:: low fat Discharge Orders Discharge Orders: Discharge Order (Routine); Ordered 12/31/21 Ordered By: Moy Almeida Discharge Data Discharge Date/Time-TO BE ENTERED AT DEPARTURE: 12/28/21 16:16 Medical Decision Making Patient is a pleasant 31-year-old female, presenting today with chief complaint of epigastric pain. She was seen here 2 days ago and was diagnosed with thoracic radiculopathy. She reports that at that time she was having more purely upper back pain. States that she gets this monthly just prior or with the start of her menses. States is not worse with any food. States that the abdominal discomfort began this morning and describes it as a stabbing discomfort. Is concerned that it may be her pancreas. She denies any alcohol intake. No change with p.o.. Pain does not radiate into the back. Is actively nauseated. States that she does have a history of acid reflux. Did take Tums last night with minimal improvement. This morning states that the oxycodone prescribed to her for her back pain as well of the prednisone and she felt that this may have exacerbated her abdominal upset. On exam, patient appears nontoxic. She is hemodynamically stable. She does appear quite anxious. She is holding her stomach. Lungs are clear, normal cardiac exam. No CVA tenderness. She has epigastric pain with palpation. She has no pain on the right upper quadrant, left upper quadrant or elsewhere about the abdomen. No peritoneal findings. Exam and history is most consistent with acid reflux. This does seem to exacerbate associated with her menstrual cycle. She states that she is about to begin her menses anytime. She does not have any lower abdominal pain. She reports that she is not sexually active. Her exam and history is not suggestive of ectopic . She has no change in urinary habits. Had 2 soft bowel movements this morning. Bowel movements and emesis have been without blood. This is not exacerbated by certain types of food she has no right upper quadrant pain, I do not find this associated with gallbladder etiology. It does radiate into the chest, will obtain EKG but this is nonexertional and seems to be elicited more with epigastric palpation, I find cardiac etiology such as ACS very unlikely. Patient reports her nausea is improved. Pain in her stomach is improved but she is now endorsing some more back pain. She reports the pain is lower than it had been when she was here recently. Labs reviewed. Patient is a mild leukocytosis of 11.4. Stable H&H. CMP significant for T bili of 2.6. AST 189. ALT 575, alk phos 188, lipase over 15,000. Albumin normal. This presentation is likely associate with some type of obstruction of the ampulla Vater leading to an acute pancreatitis transaminitis. Will obtain CT imaging. I did discuss this with the patient. Again, and usual presentation and she reports she is been having some intermittent symptoms of this for the past 3 months, again associated with times of her menses. She has also not noted any fluctuation with p.o. intake. Patient is now reporting that she is breast-feeding. Child is 4 months and is taking solid foods. I have offered a breast pump to continue on her breast milk supply because we will be giving her opiates, I will have her abstain from the use due to her breast-feeding. Contacted by radiologist, they advised that she has fluid around pancreas consistent with pancreatitis, stone and inflammation in the GB. Have pushed images to [facility], have requested GI consult, patient likely needs ERCP. Consulted with gastroenterology, Dr. Calderon, at [facility]. They advised to hold on ERCP at this time given the patient's acute pancreatitis. Recommending continuing IV antibiotics. If the patient labs are downtrending tomorrow, they advised the ERCP is likely likely not needed. She is advised that after reviewing the imaging she is questioning patient may have just recently passed the stone and may not necessarily warrant an ERCP. However, she did advise that if she did not need an ERCP she should have a cholecystectomy. However, if her labs remain stable we will continue to increase, patient will need an ERCP in the next 1 to 2 days as reviewed down and back procedure at [facility] with subsequent cholecystectomy performed clear. They would like to be kept in the loop by the medical transport regardless of the patient's improvement status. Consulted with Dr. Hernandez who agrees to admission. Patient is on her third liter of fluids and has received IV narcotics. She is resting comfortably. We do have consultants with pump here as patient is actively breast-fe eding. Patietn clear of plan to continue to monitor here with possible intervention at [facility] if labs do not improve. Either way, will need cholecystectomy. She is in agreement with this plan. Spoke with her as well. HPI General Date/Time Provider Initiated Documentation: 12/28/21 09:52 . Limitations to Documentation: no limitations . Information obtained by: patient, RN notes reviewed and old records reviewed . History of Present Illness 31 year old F presents to the emergency department with the chief complaint of epigastric pain, described as severe, with intensity rated at 10. Quality is described as burning, and is localized to the abdomen. Patient reports radiation to back (intermittent back pain, sometimes associated with abdomen). Patient started experiencing this day(s) and it has been constant. No relieving factors improve symptom(s), No exacerbating factors reported . Patient notes chest pain, loss of appetite, malaise and nausea/vomiting; denies cough, diaphoresis, fever/chills, headaches, rash and shortness of breath. Patient did receive the following treatments prior to arrival, other (prednisone, oxycodone) Related Data Home Medications Medication Instructions Recorded Confirmed Unknown [No Known Home Meds] 01/06/22 01/06/22 Allergies Allergy/AdvReac Type Severity Reaction Status Date / Time No Known Allergies Allergy Verified 01/06/22 09:38 General Stated Complaint: Abd Prob KENNEY: 3 Review of Systems Constitutional Constitutional: Reports as per HPI, Denies chills, Denies fever(s) and Denies he adache(s) ENT Ears, Nose, Mouth, and Throat: Denies headache(s) Cardiovascular Cardiovascular: Reports as per HPI, Denies chest pain and Denies dyspnea Respiratory Respiratory: Reports as per HPI, Denies cough and Denies dyspnea Gastrointestinal Gastrointestinal: Reports as per HPI Musculoskeletal Musculoskeletal: Reports as per HPI Integumentary/Breasts Skin/Breast: Reports as per HPI and Denies rash Neurologic Neurologic: Reports as per HPI and Denies headache(s) PFSH All Active Problems (Updated 01/11/22 @ 05:40 by GARCIA Ackerman) Acute gallstone pancreatitis (Acute) Cholelithiasis and cholecystitis without obstruction (Acute) Thoracic radiculopathy (Acute) Appears to be secondary to pancreatitis History of gestational diabetes (Acute) General counseling and advice for contraceptive management (Acute) Lactating mother (Acute) Amenorrhea (Acute) (Acute) Active labor at term (Acute) Labor, prolonged latent phase (Acute) care following vaginal delivery (Acute) Elevated glucose level (Acute) Medical History Gestational diabetes mellitus (GDM) affecting second Migraine Positive test Surgical History Dilation and curettage Family History Mother Thyroid disorder Sister Thyroid disorder Daughter Diabetes Type 1 DM diagnosed @ 1.5yo. 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 Date GA/Weeks # Preg Succ Route Wgt Sex Labor Lgth Anesth esia Location [facility] 08/08/17 38 No vaginal 4025.632 g Female 12 hrs nv rh al 01/16/19 9 No 10/03/20 38 No vaginal Male AMANDA Aldana Delivery Date: 08/08/17 Last Updated by: Basia Geller CNM symphysis pubis and coccygeal pain after delivery. Back labor. Long second stage. Used the tub. Armando Delivery Date: 01/16/19 Last Updated by: Amanda Rasheed M.D. miscarriage. Pt reports 3 early 1st trimester SABs since 12/2018 Delivery Date: 10/03/20 Last Updated by: LAYNE Abdalla Exam Const General: cooperative, healthy appearing, uncomfortable, no acute distress and well developed Nutritional Appearance: average body habitus and well nourished Orientation: alert and awake [facility] Head: normal to inspection Mouth: moist mucous membranes Resp Effort & Inspection: normal respiratory effort, able to speak in complete sentences and no respiratory distress Auscultation: clear to auscultation bilaterally, no rales, no rhonchi and no wheezes Cardio Rate: regular rate Rhythm: regular rhythm Heart Sounds: S1 normal and S2 normal GI Inspection: normal to inspection, no abdominal wall ecchymosis, no edema and non-distended Palpation: soft, no hepatosplenomegaly, not firm, no guarding, no pulsatile masses, not rigid and tender in the epigastrum; not at McBurney's point, Kwan's sign negative and with no rebound tenderness Percussion: normal to percussion Auscultation: hypoactive bowel sounds Back/Spine/Pelvis Back: no CVA tenderness Skin General skin exam: no rashes or lesions noted Trauma: no lacerations or abrasions Neuro General: patient alert and patient awake Cognition: normal cognition Speech: speech normal Gait: normal gait Psych Appearance: grossly normal and well kempt Mental Status: mental status grossly normal Speech and Movement: speech and movement normal Course Vital Signs Vital signs: Vital Signs Temperature 36.6 C 12/28/21 09:43 Pulse 97 H 12/28/21 09:43 Respiratory Rate 18 12/28/21 09:43 Blood Pressure 119/74 12/28/21 09:43 Pulse Oximetry 100 12/28/21 09:43 Temperature 36.6 C 12/28/21 09:43 Temperature Source Temporal Artery Scan 12/28/21 09:43 Pulse 97 H 12/28/21 09:43 Respiratory Rate 18 12/28/21 09:43 Blood Pressure 119/74 12/28/21 09:43 Blood Pressure Position Sitting 12/28/21 09:43 Pulse Oximetry 100 12/28/21 09:43 Oxygen Delivery Method Room Air 12/28/21 09:43 Oxygen Flow Rate 0 12/28/21 09:43
[2021-12-28] MEDS: Mylanta Suspension 30 ML CUP PO (11:28)
[2021-12-28] MEDS: Lactated Ringers 1,000 ML 1000 ML IV ×2 (11:28→13:10)
[2021-12-28] MEDS: Pantoprazole 40 MG VIAL IVP (11:28)
[2021-12-28] MEDS: Ondansetron 4 MG/2 ML VIAL IVP (11:28)
[2021-12-28 11:41] LABS: Abs Immature Grans 0.02 10^3/uL (0.0-0.06); Absolute Basophil Count 0.03 10^3/uL (0.0-0.2); Absolute Eosinophil Count 0.01 10^3/uL (0.0-0.7); Absolute Lymphocyte Count 0.89 10^3/uL (1.2-3.4); Absolute Monocyte Count 0.84 10^3/uL (0.1-0.8); Basophils % 0.3; Eosinophils % 0.1; HCT 45.5 % (36.0-46.0); HGB 15.5 g/dL (11.2-15.7); Immature Grans % 0.2; Lymphocytes % 7.8; MCH 29.6 pg (27.0-33.0); MCHC 34.1 % (32.0-36.0); MCV 87 fL (80-95); MPV 11.7 fL (8.0-11.0); Monocytes % 7.3; Neutrophils % 84.3; Platelet Count 179 10^3/uL (130-400); RBC 5.23 10^6/uL (3.93-5.22); RDW 13.8 % (11.7-14.6); RDW-SD 43.6 fL; WBC 11.47 10^3/uL (4.4-10.8)
[2021-12-28 11:42] LABS: Absolute Neutrophil Count 9.67 10^3/uL (1.2-6.7)
[2021-12-28 11:56] LABS: ALT 575 U/L (14-59); AST 189 U/L (15-37); Albumin 4.1 g/dL (3.4-5.0); Alkaline Phosphatase 188 U/L (46-116); Anion Gap 8.9 mmol/L (3-11); BUN 12 mg/dL (7-18); Bilirubin, Total 2.6 mg/dL (0.2-1.0); CO2 26.1 mmol/L (21.0-32.0); CREATININE 0.8 mg/dL (0.55-1.02); Calcium 9.1 mg/dL (8.5-10.1); Chloride 106 mmol/L (98-107); Glucose 119 mg/dL (74-106); Magnesium 1.9 mg/dL (1.8-2.4); Potassium 3.7 mmol/L (3.5-5.1); Sodium 141 mmol/L (136-145); Total Protein 7.6 g/dL (6.4-8.2)
--- NOTE | 2021-12-28 12:00 | DI.CT_ITS ---
Exam(s) CT ABDOMEN PELVIS W EXAM: CT ABDOMEN PELVIS W CLINICAL HISTORY: pancreatitis, transaminitis, ? obstructing stone. TECHNIQUE: Imaging Protocol: Axial computed tomography images with coronal and sagittal reformatted images were created and reviewed CONTRAST MATERIAL: Intravenous: Omnipaque 100cc Oral: None COMPARISON: No exams were available for comparison FINDINGS: VISUALIZED LUNG BASES: No nodules nor pleural effusions evident. ABDOMEN: There is no ascites. LIVER: There are no focal hepatic lesions evident. Mild prominence of intrahepatic ducts. CBD diame ter is upper normal. GALLBLADDER/BILIARY: There radiopaque calculi seen on the dependent wall of the gallbladder near the gallbladder neck. Gallbladder is somewhat distended but not edematous and there is no pericholecysti c fluid. There is no obvious radiopaque calculus in the cystic duct nor within the nondilated CBD. PANCREAS: There is an envelope of fluid around the entire pancreas, consistent with pancreatitis. Pa ncreatic duct is not dilated. There are no apparent created calcifications evident. No obvious panc reatic mass. SPLEEN: Spleen size upper normal. No splenic lesions. Splenic and portal veins are patent. Splenic and portal veins are patent. ADRENALS: There are no significant adrenal masses. KIDNEYS:There is a tiny 5 millimeters cyst in the superior pole the left kidney. No other significan t focal renal findings. No solid renal masses. No calculi nor hydronephrosis.. ABDOMINAL AORTA: Abdominal aorta is not enlarged. LYMPH NODES:There is no retroperitoneal nor paraaortic adenopathy. ABDOMINAL WALL: No evidence of significant anterior abdominal wall nor inguinal hernia. GI: There is no evidence of bowel obstruction, free air, nor abscess. PELVIS: GI: No evidence of appendicitis.No evidence of sigmoid diverticulitis. LYMPH NODES: There is no intrapelvic nor inguinal adenopathy. REPRODUCTIVE: Follicular cysts noted in the ovaries. Dominant cyst in left ovary measuring 0.3 x 1.6 cm. URINARY BLADDER: No calculi nor obvious masses evident OSSEOUS: No significant osseous lesions. IMPRESSION: 1. There is an MLO both fluid around the entire pancreas, consistent with acute pancreatitis. No obv ious pancreatic necrosis. 2. Cholelithiasis. Also slight prominence of the gallbladder lumen and intrahepatic ducts. CBD diam eter itself is upper normal and there is no obvious radiopaque calculus within the CBD. There is a t iny 1-2 millimeter hyperdensity in the duodenal wall at junction with CBD which either represents a t iny calculus or possible opacified vessel at this level. 3. No evidence of splenic vein thrombosis, portal vein thrombosis, nor SMV thrombosis. No evidence o f pseudoaneurysm of the gastroduodenal artery. Called by myself to the ER provider. RADIATION DOSE DELIVERED: 1,015.4mGy.cm Total DLP DATA REPOSITORY: All CT scans at this facility are submitted to the National Radiology Data Registry (NRDR) Dose Index Registry (DIR) with the [employer] (ACR). RADIATION OPTIMIZATION: All CT scans at this facility use at least one of these dose optimization te chniques: automated exposure control; mA and/or kV adjustment per patient size (includes targeted exa ms where dose is matched to clinical indication); or iterative reconstruction.
[2021-12-28 12:05] LABS: Lipase > 15000 U/L (73-393)
[2021-12-28 12:46] LABS: Bilirubin Negative (Negative); Blood Negative (Negative); Clarity Clear (Clear); Glucose Negative (Negative); Ketones Negative (Negative); Leukocyte Esterase Negative (Negative); Nitrite Negative (Negative); Specific Gravity 1.015 (1.005-1.025); Urobilinogen 0.2 EU/dL (Up TO 0.2); pH 6.5 (5-8)
--- NOTE | 2021-12-28 12:55 | PDOC.ERCMPRO ---
- If Service Date Differs Date of service: 12/28/21 Time of Service: 12:56 Care Management Progress Note SBIRT screen: negative. Pt reports no substance use or mental health symptoms.
[2021-12-28] MEDS: Omnipaque 350 MG/ML 100 ML BTL IJ (13:44)
[2021-12-28] MEDS: HYDROmorphone 2 MG/ML VIAL 1 MG IVP (14:54)
--- NOTE | 2021-12-28 14:59 | NUR.NOTE ---
Nursing Note:1ml low iv push given over 2 minutes - pt stated she felt hot and dizzy after 2-3 minutes. vitals normal - 121/76 p67 99% on room air. not nauseous. pt states it's definetly working. I's like a release. pt has call willis and will continue to monitor closely
[2021-12-28 16:08] LABS: Source Nasal/Nares
[2021-12-28] MEDS: Normal Saline 1,000 ML 125 ML IV (16:36)
[2021-12-28] MEDS: Normal Saline Flush 10 ML SYR IVP (16:36)
--- NOTE | 2021-12-28 17:05 | LC_ITS ---
Date of service: 12/28/21 Time of Service: 15:30 Note Note: Referred to Romy per ED - parent in ED, anticipates transfer to [facility] and surgery tomorrow for gall bladder/pancreatitis, Parent is , desires to pump to preserve her supply and order from surgeon is to pump/dump. Visited /c Mckenna in the ED - c/o intermittent back pain since September. Has a 14 month old child named Dale who is 4-6 times a day. Romy is concerned that her milk supply will decrease if she is not . Romy states current comfort citing recent narcotic, she is comfortable then has intermittent discomfort r/t gall bladder. REinforced the importance of supporting her feeding preferences in balance with her health. Recognized that her surgical provider has ordered her to pump/dump, parent questions if she can feed her child and deferred to pediatric provider. O ffered Romy a breast pump, she accepted and desired to pump now, instructed in use Expressed 30 ml. Advised Romy that her body is smart and likely her supply will be diminished as she is sick, routine stimulation will increase the likelihood that her supply will return to it's former volume. Encouraged balanced efforts and supported her efforts to maintain supply. Romy desires the option to feed the milk to her son if possible or to feed him at breast if they come to visit. Deferred to her child's copy center associate. Plan to look up meds, and [facility], screen shots of med lists and links. Phoned [facility], spoke /c Anh and confirmed process. Plan to refrigerate milk dated/timed milk until plan is clarified by providers. Romy agreed /c POC. Pumped x 20 min then pump sent with her to [facility]. NOte to Dr. Torres: Kena Andres is a patient that has been admitted to [facility], anticipating surgery and the provider has requested that she pump/dump because of her medications and potential exposure for her child. Her child Dale is 14 months old. Her admitting diagnosis is gall stone pancreatitis. Romy requested a pump and inquired if it was OK to feed her child, give surgeon recommendations to pump/dump. I explained that we usually defer to the copy center associate caring for the .? I have gone through her current med list, copied the summaries from [employer], attached links.? We loaned her one of the hospital?s pumps. Parent would like to keep milk and possibly feed milk, or more likely feed [place] at breast if they visit. Her surgeon has ordered pump/dump. May I ask you to clarify with [facility] if Romy can keep the milk at this point or to follow surgeon?s pump/dump. Bev Thank you! Medications 12/28/2021 @1629 ? Lovenox 40 mg sc o?? Limited information indicates that maternal?enoxaparin?in doses up to 40 mg daily do not to cause any adverse effects in breastfed infants. Because its large molecular weight of 2000 to 8000 daltons,?enoxaparin?would not be expected to be excreted into breastmilk or to be absorbed from breastmilk by the infant. No special precautions are required. o?? https://www.ncbi.nlm.nih.gov/books/PUC432520/ o? Famotidine 20 mg IV o?? Famotidine?doses in breastmilk result in infant dosages that are lower than those used in infants.?Famotidine?would not be expected to cause any adverse effects in breastfed infants. No special precautions are required. o?? https://www.ncbi.nlm.nih.gov/books/BDN293821/ o? Morphine 2 mg IV o?? Epidural?morphine?given to mothers for postcesarean section analgesia results in trivial amounts of?morphine?in their colostrum and milk. Intravenous or oral doses of maternal?morphine?in the immediate period result in higher milk levels than with epidural?morphine. Labor pain medication may delay the onset of . Maternal use of oral narcotics during can cause drowsiness, central nervous system depression and even , although low-dose?morphine?might be preferred over other opiates.[1 https://www.ncbi.nlm.nih.gov/books/SCA581534/ ]? http s://www.ncbi.nlm.nih.gov/books/n/lactmed/drugandlactglossary/def-item// ?infants seem to be particularly sensitive to the effects of even small dosages of narcotic analgesics. Once the mother's milk comes in, it is best to provide pain control with a nonnarcotic analgesic and limit maternal intake of?morphine ?to 2 to 3 days at a low dosage with close monitoring, especially in the outpatient setting.[2 https://www.ncbi.nlm.nih.gov/books/FGV156893/ ] If the baby shows signs of increased sleepiness (more than usual), difficulty , breathing difficulties, or limpness during maternal?morphine?use, a physician should be contacted immediately. Some evidence suggests that IV ketorolac, oral ibuprofen and acetaminophen as part of a multimodal post- section analgesia reduces percentage of mothers who fail exclusive compared to patient-controlled IV?morphine-based analgesia o?? https://www.ncbi.nlm.nih.gov/books/JXM870609/ o? Ondansetron 4 mg o?? frequently used for nausea during and after section, usually in doses of 4 to 8 mg intravenously.[1 https://www.ncbi.nlm.nih.gov/books/FTQ157587/ -4 https://www.ncbi.nlm.nih.gov/books/FOS410493/ ] Use during and after section appears to not affect the onset of .[1 https://www.ncbi.nlm.nih.gov/books/PAZ919172/ ,5 https:// www.ncbi.nlm.nih.gov/books/NZZ014746/ ] No adverse infant effects have been reported in this setting or among women who received?ondansetron? in a pharmacokinetic study. Use of?ondansetron?in nursing mothers beyond the immediate setting has not been studied well, but the drug is labeled for use in infants as young as 1 month of age. A computer model demonstrated that the amounts in milk are much less than this dose. No special precautions are required. o?? https://www.ncbi.nlm.nih.gov/books/ATI729645/ o? Mylanta o?? Although no data are available on the use of simethicone during , it is known that simethicone is not absorbed orally. Therefore, it cannot be transferred to breastmilk. It is also used safely in breastfed infants.[1 https://www.ncbi.nlm.nih.gov/books/YTJ418032/ ,2 https://www.ncbi.nlm.nih.gov/books/RMI909961/ ] No special precautions are required o?? https://www.ncbi.nlm.nih.gov/books/QMS214838/ o?? o?? A study on the use of magnesium hydroxide during found no adverse reactions in breastfed infants. Intravenous magnesium increases milk magnesium concentrations only slightly. Oral absorption of magnesium by the is poor, so maternal magnesium hydroxide is not expected to affect the breastfed infant's serum magnesium. Magnesium hydroxide supplementation during might delay the onset of , but it can be taken during and no special precautions are required o?? https://www.ncbi.nlm.nih.gov/books/UQF439527/ o? Hydromorphone o?? Limited data indicate that?hydromorphone?is excreted into breastmilk in small amounts, but large maternal dosages have caused central nervous system depression. In general, maternal use of oral narcotics during can cause infant drowsiness, central nervous system depression and even .?Hydromorphone?use should be limited in nursing mothers.[1]? https://www.ncbi.nlm.nih.gov/books/n/lactmed/drugandlactglossary/def- item// ?infants seem to be particularly sensitive to the effects of even small dosages of narcotic analgesics. Once the mother's milk comes in, it is best to provide pain control with a nonnarcotic analgesic and limit maternal intake of?hydromorphone?to a few days at a low dosage with close infant monitoring. If the baby shows signs of increased sleepiness (more than usual), difficulty , breathing difficulties, or limpness, a physician should be contacted immediately o?? https://www.ncbi.nlm.nih.gov/books/QHZ457555/ o? Iohexol o?? Limited information indicates that maternal doses of?iohexol?up to 45.3 gr ams (containing 21 grams of iodine) produce low levels in milk. In addition, because?iohexol?is poorly absorbed orally, it is not likely to reach the bloodstream of the infant or cause any adverse effects in breastfed infants. The animal anatomist states that withholding for 10 hours after administration to minimize the exposure of the infant; however, guidelines developed by several professional organizations state that need not be disrupted after a nursing mother receives an iodine-containing contrast medium. o?? https://www.ncbi.nlm.nih.gov/books/NZJ720405/ o? Pantoprazole o?? Maternal?pantoprazole?doses of 40 mg daily produce low levels in milk and would not be expected to cause any adverse effects in breastfed infants. o?? https://www.ncbi.nlm.nih.gov/books/XWL835665/ ? Prednisone o?? Amounts of?prednisone?in breastmilk are very low. No adverse effect have been reported in breastfed infants with maternal use of any corticosteroid during . With high maternal doses, the use of prednisolone instead of?prednisone?and avoiding for 4 hours after a dose theoretically should decrease the dose received by the infant. However, these maneuvers are not necessary with short-term use. High doses might occasionally cause temporary loss of milk supply. o?? https://www.ncbi.nlm.nih.gov/books/EKZ546999/ Results Weight/I&O Weight Change: Weight 83.915 kg I&O: 12/27/21 12/27/21 12/28/21 12/28/21 11:59 23:59 11:59 23:59 Intake Total 1999 Balance 1999 Intake: IV 1999 Other: Weight 83.915 kg
[2021-12-28 17:14] LABS: COVID-19 PCR Negative (Negative)
[2021-12-28] MEDS: ACETAMINOPHEN 1,000 MG/100 ML BTL 400 MG IVPB (17:41)
[2021-12-28] MEDS: Enoxaparin 40 MG/0.4 ML SYR SC (17:42)
[2021-12-28] MEDS: FAMOTIDINE 20 MG in Normal Saline 100 ML 400 MG IVPB (18:53)
--- NOTE | 2021-12-28 20:45 | W.PM.HP.N ---
Assessment and Plan Assessment and plan (1) Lactating mother: Status: Acute (2) Gestational diabetes mellitus (GDM) affecting second : Status: Acute (3) Acute gallstone pancreatitis: Status: Acute Assessment and plan: - I discussed with the patient and her the etiology of gallstones. Most likely this is related to her recent 14 months ago. This is also probably been the cause of her back pain. Although it is somewhat of an atypical presentation with it mainly just being back pain. We will repeat her labs tomorrow. If her bilirubin is still elevated then we will get a MRCP. If that shows any signs of choledocholithiasis we will refer her down for an ERCP. Continue supportive care for her pancreatitis. She does not have much of an appetite. Other than her lipase and LFTs, or other lab work is reassuring/essentially normal. We will allow her pancreatitis to resolve. She does have moderate edema noted on CT scan. We do want this to resolve prior to any surgical intervention. Continue with conservative medical management and supportive care Ransons score is 0 (4) Cholelithiasis and cholecystitis without obstruction: Status: Acute History of Present Illness Narrative: Patient is a 31-year-old female who presented today with actually complaints of back pain. She was seen in the ER on 12/26 and diagnosed with thoracic radiculopathy and started on prednisone. Today she came in complaining of back pain and associated nausea and vomiting and was found to have a lipase greater than 15,000 and elevated LFTs and total bilirubin. She was also found to have a large stone in the neck of the gallbladder. She states the symptoms have been going on for several months and seem to be more associated with purely back pain. The pain appears to be associated with her menstrual cycle and worse just prior to getting her period. Curiously, there does not seem to be any dietary association, or association with any abdominal pain. She has 2 children. I cannot note anywhere in her chart that she is on any active control. She has a negative test in the ER. Clinically she notes that she is felt very bloated lately. She currently feels mildly nauseated and does not have much of an appetite. She notes early satiety. She denies any diarrhea. She is still breast-feeding. She complains more of back pain then she does abdominal pain. I did review her CT scans. She does appear to have a mild pancreatitis. Pancreatic ducts and common bile ducts appear to be normal on CT scan. She does not appear to have a significant cholecystitis. Her past medical history is pretty unremarkable. Her son is 14 months old. She is not currently on any medications, other than the steroids the ER started her on for back pain 2 days ago and vitamins., No known drug allergies. She is a non-smoker nondrinker. The only surgery she has had is D&C for a missed AB. She had no problems with anesthesia. Review of Systems All systems reviewed & are unremarkable except as noted in HPI and below PFSH All Active Problems (Updated 12/28/21 @ 21:42 by Linda Hernandez DO) Cholelithiasis and cholecystitis without obstruction (Acute) Acute gallstone pancreatitis (Acute) Thoracic radiculopathy (Acute) Appears to be secondary to pancreatitis History of gestational diabetes (Acute) General counseling and advice for contraceptive management (Acute) Lactating mother (Acute) Amenorrhea (Acute) (Acute) Gestational diabetes mellitus (GDM) affecting second (Acute) Active labor at term (Acute) Labor, prolonged latent phase (Acute) care following vaginal delivery (Acute) Elevated glucose level (Acute) Medical History Migraine Positive test Surgical History Dilation and curettage Family History Mother Thyroid disorder Sister Thyroid disorder Daughter Diabetes Type 1 DM diagnosed @ 1.5yo. 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 Date GA/Weeks # Preg Succ Route Wgt Sex Labor Lgth Anesthesia Location Prov Complic 08/08/17 38 No vaginal 4025.632 g Female 12 hrs nvrh al 01/16/19 9 No 10/03/20 38 No vaginal Male AMANDA Aldana Delivery Date: 08/08/17 Last Updated by: Basia Geller CNM symphysis pubis and coccygeal pain after delivery. Back labor. Long second stage. Used the tub. Armando Delivery Date: 01/16/19 Last Updated by: Amanda Rasheed M.D. miscarriage. Pt reports 3 early 1st trimester SABs since 12/2018 Delivery Date: 10/03/20 Last Updated by: LAYNE Abdalla Camejo Almeida [facility] Allergies and Home Medications Allergies Allergy/AdvReac Type Severity Reaction Status Date / Time No Known Allergies Allergy Verified 12/25/21 20:28 Home Medications Medication Instructions Recorded Confirmed Type prednisone 20 mg tablet 40 mg PO DAILY #10 tabs 12/26/21 12/28/21 Rx Exam HENKY Head: normal to inspection Ears: hearing grossly normal bilaterally Teeth and gingiva: dentition normal Eyes General: appearance normal, both eyes and all related structures Sclera: sclerae normal Other: She does not appear overtly jaundiced Resp Effort & Inspection: normal respiratory effort and able to speak in complete sentences Auscultation: clear to auscultation bilaterally Cardio Palpation: normal PMI Rate: regular rate GI Inspection: normal to inspection Palpation: soft, no hernias and tender (Minimal epigastric left upper quadrant tenderness) Auscultation: hypoactive bowel sounds Other: Patient notes more pain in the mid and right thoracic area rather than abdominal pain Neuro General: patient alert, patient awake, patient oriented x3, oriented, moves all extremities, no focal motor deficits and CN's II-XI intact bilaterally Cranial Nerves: CN's II-XI intact bilaterally Cognition: normal cognition Speech: speech normal Extrem General: no clubbing, cyanosis or edema Results Labs Result diagrams: 12/29/21 06:35 12/29/21 06:35 Labs: Laboratory Results - last 24 hr 12/28/21 12/28/21 12/28/21 11:24 11:24 12:39 WBC 11.47 H RBC 5.23 H Hgb 15.5 Hct 45.5 MCV 87 MCH 29.6 MCHC 34.1 RDW 13.8 Plt Count 179 MPV 11.7 H Immature Gran % 0.2 Neutrophils % 84.3 Lymphocytes % 7.8 Monocytes % 7.3 Eosinophils % 0.1 Basophils % 0.3 Nucleated RBC % 0.0 Absolute Neutrophils 9.67 H Absolute Lymphocytes 0.89 L Absolute Monocytes 0.84 H Absolute Eosinophils 0.01 Absolute Basophils 0.03 Sodium 141 Potassium 3.7 Chloride 106 Carbon Dioxide 26.1 Anion Gap 8.9 BUN 12 Creatinine 0.8 Estimated GFR/1.73 m2 >= 60.00 Glucose 119 H Calcium 9.1 Magnesium 1.9 Total Bilirubin 2.6 H AST 189 H ALT 575 H Alkaline Phosphatase 188 H Total Protein 7.6 Albumin 4.1 Lipase > 33291 H Urine Color Yellow Urine Clarity Clear Urine pH 6.5 Ur Specific [place] 1.015 Urine Protein Negative Urine Ketones Negative Urine Blood Negative Urine Nitrite Negative Urine Bilirubin Negative Urine Urobilinogen 0.2 Ur Leukocyte Esterase Negative Urine Glucose Negative COVID-19 Source SARS-CoV-2 (PCR) 12/28/21 16:04 WBC RBC Hgb Hct MCV MCH MCHC RDW Plt Count MPV Immature Gran % Neutrophils % Lymphocytes % Monocytes % Eosinophils % Basophils % Nucleated RBC % Absolute Neutrophils Absolute Lymphocytes Absolute Monocytes Absolute Eosinophils Absolute Basophils Sodium Potassium Chloride Carbon Dioxide Anion Gap BUN Creatinine Estimated GFR/1.73 m2 Glucose Calcium Magnesium Total Bilirubin AST ALT Alkaline Phosphatase Total Protein Albumin Lipase Urine Color Urine Clarity Urine pH Ur Specific [place] Urine Protein Urine Ketones Urine Blood Urine Nitrite Urine Bilirubin Urine Urobilinogen Ur Leukocyte Esterase Urine Glucose COVID-19 Source Nasal/Nares SARS-CoV-2 (PCR) Negative Last Vital Signs Temp 38.6 C H 12/28/21 17:41 Pulse 63 12/28/21 16:49 Resp 17 12/28/21 16:49 BP 114/73 12/28/21 16:49 Pulse Ox 99 12/28/21 16:49
[2021-12-29] MEDS: ACETAMINOPHEN 1,000 MG/100 ML BTL 400 MG IVPB ×5 (05:35→23:26)
[2021-12-29] MEDS: FAMOTIDINE 20 MG in Normal Saline 100 ML 400 MG IVPB ×2 (05:44→17:28)
[2021-12-29 07:03] LABS: Abs Immature Grans 0.02 10^3/uL (0.0-0.06); Absolute Basophil Count 0.03 10^3/uL (0.0-0.2); Absolute Eosinophil Count 0.04 10^3/uL (0.0-0.7); Absolute Lymphocyte Count 0.89 10^3/uL (1.2-3.4); Absolute Monocyte Count 0.36 10^3/uL (0.1-0.8); Absolute Neutrophil Count 4.86 10^3/uL (1.2-6.7); Basophils % 0.5; Eosinophils % 0.6; HCT 38.5 % (36.0-46.0); HGB 12.8 g/dL (11.2-15.7); Immature Grans % 0.3; Lymphocytes % 14.4; MCH 29.8 pg (27.0-33.0); MCHC 33.2 % (32.0-36.0); MCV 90 fL (80-95); MPV 11.4 fL (8.0-11.0); Monocytes % 5.8; Neutrophils % 78.4; Platelet Count 143 10^3/uL (130-400); RDW 13.7 % (11.7-14.6); RDW-SD 44.7 fL
[2021-12-29 07:20] VITALS: BP 102/62; PULSE 65; RESP 19; TEMP 36.6; O2SAT 97
[2021-12-29 07:21] LABS: ALT 357 U/L (14-59); AST 86 U/L (15-37); Alkaline Phosphatase 201 U/L (46-116); Anion Gap 12.2 mmol/L (3-11); BUN 14 mg/dL (7-18); Bilirubin, Total 3.4 mg/dL (0.2-1.0); CO2 21.8 mmol/L (21.0-32.0); CREATININE 0.7 mg/dL (0.55-1.02); Calcium 8.1 mg/dL (8.5-10.1); Chloride 106 mmol/L (98-107); Glucose 72 mg/dL (74-106); Potassium 3.3 mmol/L (3.5-5.1); Sodium 140 mmol/L (136-145); Total Protein 5.8 g/dL (6.4-8.2)
[2021-12-29 07:34] LABS: Calculated LDL 80 mg/dL (<100); Cholesterol 136 mg/dL (<200); HDL Cholesterol 30 mg/dL (40-60); Triglyceride 134 mg/dL (<150)
[2021-12-29 07:41] LABS: Lipase > 15000 U/L (73-393)
[2021-12-29] MEDS: POTASSIUM CHLORIDE 10 MEQ/100 ML BAG 100 MEQ IVPB (08:57)
[2021-12-29] MEDS: Normal Saline Flush 10 ML SYR IVP (08:58)
--- NOTE | 2021-12-29 09:47 | W.PM.PROGNOT ---
Date of Service Date of service: 12/29/21 Time of Service: 09:48 Assessment and Plan Assessment and plan (1) Cholelithiasis and cholecystitis without obstruction: Status: Acute (2) Acute gallstone pancreatitis: Status: Acute Assessment and plan: MRCP is scheduled for later today. Continue NPO status Continue Pain Control Potassium is being repleted Zofran is ordered for nausea Encouraged activity OOB and ambulation as tolerated Patient has severe claustrophobia and could not tolerate being in the MRI. She is still having a lot of pain and not feeling any significantly better. Her T bilirubin did go up overnight. We will repeat her labs this afternoon and if her bilirubin is not trending down then I will talk to GI about doing a ERCP. (3) Thoracic radiculopathy: Status: Acute Subjective Subjective Interval history since last seen: Patient reports that she feels a little better today but is having some nausea. She expressed this may be secondary to hunger. Exam Const General: cooperative and comfortable Orientation: alert and oriented x3 Resp Effort & Inspection: normal respiratory effort, no audible wheezes and no cough GI Inspection: normal to inspection Palpation: soft, no guarding and tender in the epigastrum, in the LUQ and in the RUQ Objective Last Vital Signs Temp 36.6 C 12/29/21 07:20 Pulse 65 12/29/21 07:20 Resp 19 12/29/21 07:20 BP 102/62 12/29/21 07:20 Pulse Ox 97 12/29/21 07:20 Laboratory Results - last 24 hr 12/28/21 12/28/21 12/28/21 11:24 11:24 12:39 WBC 11.47 H RBC 5.23 H Hgb 15.5 Hct 45.5 MCV 87 MCH 29.6 MCHC 34.1 RDW 13.8 Plt Count 179 MPV 11.7 H Immature Gran % 0.2 Neutrophils % 84.3 Lymphocytes % 7.8 Monocytes % 7.3 Eosinophils % 0.1 Basophils % 0.3 Nucleated RBC % 0.0 Absolute Neutrophils 9.67 H Absolute Lymphocytes 0.89 L Absolute Monocytes 0.84 H Absolute Eosinophils 0.01 Absolute Basophils 0.03 Sodium 141 Potassium 3.7 Chloride 106 Carbon Dioxide 26.1 Anion Gap 8.9 BUN 12 Creatinine 0.8 Estimated GFR/1.73 m2 >= 60.00 Glucose 119 H Calcium 9.1 Magnesium 1.9 Total Bilirubin 2.6 H AST 189 H ALT 575 H Alkaline Phosphatase 188 H Total Protein 7.6 Albumin 4.1 Triglycerides Total Cholesterol LDL Cholesterol, Calc HDL Cholesterol Lipase > 04264 H Urine Color Yellow Urine Clarity Clear Urine pH 6.5 Ur Specific [place] 1.015 Urine Protein Negative Urine Ketones Negative Urine Blood Negative Urine Nitrite Negative Urine Bilirubin Negative Urine Urobilinogen 0.2 Ur Leukocyte Esterase Negative Urine Glucose Negative COVID-19 Source SARS-CoV-2 (PCR) 12/28/21 12/29/21 12/29/21 16:04 06:35 06:35 WBC RBC Hgb Hct MCV MCH MCHC RDW Plt Count MPV Immature Gran % Neutrophils % Lymphocytes % Monocytes % Eosinophils % Basophils % Nucleated RBC % Absolute Neutrophils Absolute Lymphocytes Absolute Monocytes Absolute Eosinophils Absolute Basophils Sodium 140 Potassium 3.3 L Chloride 106 Carbon Dioxide 21.8 Anion Gap 12.2 H BUN 14 Creatinine 0.7 Estimated GFR/1.73 m2 >= 60.00 Glucose 72 L Calcium 8.1 L Magnesium Total Bilirubin 3.4 H AST 86 H ALT 357 H Alkaline Phosphatase 201 H Total Protein 5.8 L Albumin 3.0 L Triglycerides 134 Total Cholesterol 136 LDL Cholesterol, Calc 80 HDL Cholesterol 30 L Lipase > 87390 H Urine Color Urine Clarity Urine pH Ur Specific [place] Urine Protein Urine Ketones Urine Blood Urine Nitrite Urine Bilirubin Urine Urobilinogen Ur Leukocyte Esterase Urine Glucose COVID-19 Source Nasal/Nares SARS-CoV-2 (PCR) Negative 12/29/21 06:35 WBC 6.20 RBC 4.30 Hgb 12.8 D Hct 38.5 MCV 90 MCH 29.8 MCHC 33.2 RDW 13.7 Plt Count 143 MPV 11.4 H Immature Gran % 0.3 Neutrophils % 78.4 Lymphocytes % 14.4 Monocytes % 5.8 Eosinophils % 0.6 Basophils % 0.5 Nucleated RBC % 0.0 Absolute Neutrophils 4.86 Absolute Lymphocytes 0.89 L Absolute Monocytes 0.36 Absolute Eosinophils 0.04 Absolute Basophils 0.03 Sodium Potassium Chloride Carbon Dioxide Anion Gap BUN Creatinine Estimated GFR/1.73 m2 Glucose Calcium Magnesium Total Bilirubin AST ALT Alkaline Phosphatase Total Protein Albumin Triglycerides Total Cholesterol LDL Cholesterol, Calc HDL Cholesterol Lipase Urine Color Urine Clarity Urine pH Ur Specific [place] Urine Protein Urine Ketones Urine Blood Urine Nitrite Urine Bilirubin Urine Urobilinogen Ur Leukocyte Esterase Urine Glucose COVID-19 Source SARS-CoV-2 (PCR)
[2021-12-29] MEDS: Normal Saline 1,000 ML 125 ML IV ×2 (10:10→17:20)
[2021-12-29] MEDS: LORazepam 1 MG TAB PO (10:43)
[2021-12-29 10:58] LABS: Hepatitis A Antibody IgM Negative (Negative); Hepatitis B Core Antibody Negative (Negative); Hepatitis B surface Ag Negative (Negative); Hepatitis C Ab w Rflx HCV PCR Negative (Negative)
--- NOTE | 2021-12-29 11:43 | INITIAL_ITS ---
- If Service Date Differs Date of service: 12/29/21 Time of Service: 11:43 Care Management Initial Assess REASON FOR HOSPITALIZATION:: gallstone pancreatitis PAST MEDICAL HISTORY/PAST SURGICAL HISTORY:: All Active Problems. Cholelithiasis and cholecystitis without obstruction (Acute). Acute gallstone pancreatitis (Acute). Thoracic radiculopathy (Acute). Appears to be secondary to pancreatitis. History of gestational diabetes (Acute). General counseling and advice for contraceptive management (Acute). Lactating mother (Acute). Amenorrhea (Acute). (Acute). Gestational diabetes mellitus (GDM) affecting second (Acute). Active labor at term (Acute). Labor, prolonged latent phase (Acute). care following vaginal delivery (Acute). Elevated glucose level (Acute). Medical History. Migraine. Positive test. . Surgical History. Dilation and curettage PREVIOUS FUNCTIONAL STATUS/SOCIAL/FAMILY SUPPORTS:: Pepe lives in [place] with her , Isreal and two children. 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 She is independent at baseline. CURRENT FUNCTIONAL STATUS:: Pepe was sleeping when CM attempted to meet with her. Per RN, she recently fell asleep, and has been in pain, therefore CM will not wake her. RN did not express any concerns to CM. Per report, she will likely have an MRCP later today, and if her labs do not improve overnight, MD will discuss her going to have an ERCP with GI at [facility]. CM will continue to follow. ADVANCE DIRECTIVES:: Not on file. Has patient been provided with info about the portal/API?: Yes Did the patient sign up for the portal?: Yes (active) CODE STATUS:: Full Code INSURANCE COVERAGE / FINANCIAL ISSUES:: [employer] CURRENT HOME/COMMUNITY SERVICES/EQUIPMENT:: No current services or equipment. PRIMARY CARE PHYSICIAN:: Unknown POTENTIAL DISCHARGE NEEDS:: Follow up appointments PATIENT/FAMILY EDUCATION NEEDS:: Review discharge instructions and limitations, discussion of self care needs including ask me three. ANTICIPATED BARRIERS TO DISCHARGE:: none TRANSPORTATION:: Via private vehicle by family. PLAN:: Pepe will likely return home with no new services. She will follow up with surgical services and her discharge plan of care. She will transport via private vehicle by family. CM will continue to follow.
--- NOTE | 2021-12-29 11:58 | PHA.REVIEW ---
Pharmacy Admission Review - Admission Clinical Review (Last Reviewed 12/28/21 @ 20:55 by Linda Hernandez DO) Cholelithiasis and cholecystitis without obstruction (Acute) Acute gallstone pancreatitis (Acute) Thoracic radiculopathy (Acute) Lactating mother (Acute) Gestational diabetes mellitus (GDM) affecting second (Acute) No Known Allergies Allergy (Verified 12/25/21 20:28) Resuscitation Status Full Code Height 5 ft 7 in Weight 83.915 kg - Renal Dosing Renal Dosing: BUN 14 mg/dL (7-18) 12/29/21 06:35 Creatinine 0.7 mg/dL (0.55-1.02) 12/29/21 06:35 Medications needing adjustments: Reviewed (Crcl ~129.65 mL/min current meds okay) - Anticoagulation Anticoagulation: Hgb 12.8 g/dL (11.2-15.7) D 12/29/21 06:35 Hct 38.5 % (36.0-46.0) 12/29/21 06:35 Plt Count 143 10^3/uL (130-400) 12/29/21 06:35 Creatinine 0.7 mg/dL (0.55-1.02) 12/29/21 06:35 DVT Prophylaxis: Reviewed Medications: Enoxaparin Therapeutic Anticoagulation: N/A - Opiate Usage Evaluate Pain Scale/Pains Meds: Reviewed Scheduled Bowel Reg ordered if on Opiates?: No - Relevant Labs Sodium 140 mmol/L (136-145) 12/29/21 06:35 Potassium 3.3 mmol/L (3.5-5.1) L 12/29/21 06:35 Chloride 106 mmol/L (98-107) 12/29/21 06:35 Magnesium 1.9 mg/dL (1.8-2.4) 12/28/21 11:24 Electrolytes, C-Reactive P, ESR: Reviewed (IV K+ ordered this morning) - DM Control DM Control: Glucose 72 mg/dL (74-106) L 12/29/21 06:35 Insulin Dosing: N/A - Heart Failure/VT EF%, LESLIE's, B-Blockers, Diuretics: N/A - BP Control BP Control: Blood Pressure 102/62 If elevated: N/A (BP has been within normal limits so far this admission.) - Qtc Review If Elevated: N/A (QTc 428 on admission) - IV to PO Switch IV Medications: Reviewed - Home Meds Home Med List reviewed: Reviewed - Current meds Current Medication Order Review: Intervened (Discontinued duplicate med orders and DI meds that had already been given.) - Comments Comments/Follow Ups: Watch VS, K+, labs and for med changes (IV to PO once pt is no longer NPO).
--- NOTE | 2021-12-29 14:15 | CHAPLAIN ---
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 She lives in [place] with her and two children. She said her pain is better controlled now.
[2021-12-29 15:19] LABS: HCT 40.2 % (36.0-46.0); HGB 13.6 g/dL (11.2-15.7)
[2021-12-29 15:26] VITALS: BP 105/69; PULSE 79; RESP 19; TEMP 37.3; O2SAT 97
[2021-12-29 15:46] LABS: ALT 334 U/L (14-59); AST 64 U/L (15-37); Albumin 3.4 g/dL (3.4-5.0); Alkaline Phosphatase 221 U/L (46-116); Anion Gap 11.2 mmol/L (3-11); BUN 11 mg/dL (7-18); Bilirubin, Total 1.9 mg/dL (0.2-1.0); CO2 21.8 mmol/L (21.0-32.0); CREATININE 0.7 mg/dL (0.55-1.02); Calcium 8.4 mg/dL (8.5-10.1); Chloride 106 mmol/L (98-107); Glucose 77 mg/dL (74-106); Potassium 3.4 mmol/L (3.5-5.1); Sodium 139 mmol/L (136-145); Total Protein 6.7 g/dL (6.4-8.2)
[2021-12-29 17:03] LABS: Lipase 12234 U/L (73-393)
[2021-12-29] MEDS: Enoxaparin 40 MG/0.4 ML SYR SC (17:20)
[2021-12-29 20:04] VITALS: BP 102/66; PULSE 75; RESP 18; TEMP 37.3; O2SAT 99
[2021-12-30] MEDS: Normal Saline 1,000 ML 125 ML IV (02:32)
[2021-12-30 04:11] VITALS: BP 114/72; PULSE 78; RESP 18; TEMP 37.3; O2SAT 97
[2021-12-30] MEDS: FAMOTIDINE 20 MG in Normal Saline 100 ML 400 MG IVPB ×2 (05:30→17:44)
[2021-12-30] MEDS: ACETAMINOPHEN 1,000 MG/100 ML BTL 400 MG IVPB ×3 (06:01→17:45)
[2021-12-30] MEDS: Ondansetron 4 MG/2 ML VIAL IVP ×2 (06:20→11:46)
[2021-12-30 07:10] LABS: ALT 256 U/L (14-59); AST 37 U/L (15-37); Albumin 3.1 g/dL (3.4-5.0); Alkaline Phosphatase 196 U/L (46-116); Anion Gap 11.3 mmol/L (3-11); BUN 9 mg/dL (7-18); Bilirubin, Total 1.5 mg/dL (0.2-1.0); C-Reactive Protein 7.97 mg/dL (0.0-0.3); CO2 19.7 mmol/L (21.0-32.0); CREATININE 0.6 mg/dL (0.55-1.02); Calcium 8.1 mg/dL (8.5-10.1); Chloride 107 mmol/L (98-107); Glucose 67 mg/dL (74-106); Magnesium 1.7 mg/dL (1.8-2.4); Potassium 3.6 mmol/L (3.5-5.1); Sodium 138 mmol/L (136-145); Total Protein 6.4 g/dL (6.4-8.2)
[2021-12-30 07:20] VITALS: BP 107/69; PULSE 77; RESP 16; TEMP 36.2; O2SAT 96
[2021-12-30 07:23] LABS: Lipase 3846 U/L (73-393)
[2021-12-30] MEDS: POTASSIUM CHLORIDE/D5-0.45NACL 1,000 ML 125 MEQ IV (09:10)
--- NOTE | 2021-12-30 10:48 | W.PM.PROGNOT ---
Date of Service Date of service: 12/30/21 Time of Service: 10:49 Assessment and Plan Assessment and plan (1) Cholelithiasis and cholecystitis without obstruction: Status: Acute (2) Acute gallstone pancreatitis: Status: Acute Assessment and plan: Patient was not able to proceed with MRCP Labs are improving, Lipase 3846. Bilirubin down to 1.5 this morning. Continue with IV hydration, pain control Will trial clear liquid diet. Emphasized taking it slowly. Encouraged ambulation and sitting in the chair. Patient seen and examined Agree with above Abdomen is soft, ND, NTTP Tolerating clears so far Will decrease IV fluids Patient eager to go home (3) Thoracic radiculopathy: Status: Acute Subjective Subjective Interval history since last seen: Patient reports she is feeling better this morning. She describes occasional epigastric discomfort. However states that the back pain she was experiencing has resolved. She denies having any nausea or vomiting at this time. She is hungry and very anxious to return home to be with her family. Exam Const General: cooperative, healthy appearing and comfortable Orientation: alert and oriented x3 Resp Effort & Inspection: normal respiratory effort, no audible wheezes and no cough GI Inspection: normal to inspection Palpation: soft, no guarding and tender (mild) in the epigastrum and in the LUQ Objective Last Vital Signs Temp 36.2 C L 12/30/21 07:20 Pulse 77 12/30/21 07:20 Resp 16 12/30/21 07:20 BP 107/69 12/30/21 07:20 Pulse Ox 96 12/30/21 07:20 Laboratory Results - last 24 hr 12/28/21 12/29/21 12/29/21 11:24 15:10 15:10 Hgb 13.6 Hct 40.2 Sodium 139 Potassium 3.4 L Chloride 106 Carbon Dioxide 21.8 Anion Gap 11.2 H BUN 11 Creatinine 0.7 Estimated GFR/1.73 m2 >= 60.00 Glucose 77 Calcium 8.4 L Magnesium Total Bilirubin 1.9 H AST 64 H ALT 334 H Alkaline Phosphatase 221 H C-Reactive Protein Total Protein 6.7 Albumin 3.4 Lipase Hepatitis A IgM Ab Negative Hep Bs Antigen Negative Hep B Core Total Ab Negative Hepatitis C Antibody Negative 12/29/21 12/30/21 15:10 06:15 Hgb Hct Sodium 138 Potassium 3.6 Chloride 107 Carbon Dioxide 19.7 L Anion Gap 11.3 H BUN 9 Creatinine 0.6 Estimated GFR/1.73 m2 >= 60.00 Glucose 67 L Calcium 8.1 L Magnesium 1.7 L Total Bilirubin 1.5 H AST 37 ALT 256 H Alkaline Phosphatase 196 H C-Reactive Protein 7.97 H Total Protein 6.4 Albumin 3.1 L Lipase 29971 H 3846 H Hepatitis A IgM Ab Hep Bs Antigen Hep B Core Total Ab Hepatitis C Antibody
[2021-12-30 15:20] VITALS: BP 118/78; PULSE 86; RESP 16; TEMP 37; O2SAT 99
--- NOTE | 2021-12-30 16:16 | PDOC.CMPRO ---
- If Service Date Differs Date of service: 12/30/21 Time of Service: 16:16 Care Management Progress Note S/O: Pepe was sitting up in her chair when CM met with her. 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 She reported that she works for [email or web address]. She stated that her PCP is currently [facility], but that she is thinking about moving to another practice, possibly [facility], but she has not initiated the change. EDU informed her that she will likely have a follow up from this hospitalization at her PCP office, as it may take a while for her get into a new practice. She stated that per MD, she would likely remain overnight again, as her labs have still not normalized. She reported that her pain has been well controlled. Her and children visited today, and she is hoping to see them again during visiting hours. CM will continue to follow. A: Pepe is a 31 year old female [facility] for gallstone pancreatitis. P: Pepe will likely return home with no new services. She will follow up with surgical services and her discharge plan of care. She will transport via private vehicle by family. CM will continue to follow.
[2021-12-30] MEDS: Normal Saline Flush 10 ML SYR IVP (17:46)
[2021-12-30] MEDS: MAGNESIUM SULFATE 2 GM/50 ML BAG IVPB (17:46)
[2021-12-30] MEDS: Enoxaparin 40 MG/0.4 ML SYR SC (17:46)
[2021-12-30] MEDS: POTASSIUM CHLORIDE/D5-0.45NACL 1,000 ML 80 MEQ IV (21:02)
[2021-12-30 23:57] VITALS: BP 105/68; PULSE 80; RESP 18; TEMP 36.6; O2SAT 98
[2021-12-31] MEDS: ACETAMINOPHEN 1,000 MG/100 ML BTL 400 MG IVPB ×2 (00:22→06:05)
[2021-12-31] MEDS: FAMOTIDINE 20 MG in Normal Saline 100 ML 400 MG IVPB (06:06)
[2021-12-31 06:44] LABS: HCT 36.4 % (36.0-46.0); MCH 29.1 pg (27.0-33.0); MCV 88 fL (80-95); MPV 11.5 fL (8.0-11.0); Platelet Count 148 10^3/uL (130-400); RBC 4.13 10^6/uL (3.93-5.22); RDW 13.5 % (11.7-14.6); RDW-SD 43.8 fL
[2021-12-31 06:55] LABS: ALT 171 U/L (14-59); AST 17 U/L (15-37); Albumin 2.9 g/dL (3.4-5.0); Alkaline Phosphatase 168 U/L (46-116); Anion Gap 7.6 mmol/L (3-11); BUN 5 mg/dL (7-18); Bilirubin, Total 0.9 mg/dL (0.2-1.0); C-Reactive Protein 6.79 mg/dL (0.0-0.3); CO2 24.4 mmol/L (21.0-32.0); CREATININE 0.5 mg/dL (0.55-1.02); Calcium 8.1 mg/dL (8.5-10.1); Chloride 108 mmol/L (98-107); Glucose 104 mg/dL (74-106); Potassium 3.7 mmol/L (3.5-5.1); Sodium 140 mmol/L (136-145); Total Protein 6.3 g/dL (6.4-8.2)
[2021-12-31 08:09] VITALS: BP 101/69; PULSE 98; RESP 14; TEMP 36.1; O2SAT 100
--- NOTE | 2021-12-31 09:27 | DSE_ITS ---
Date of service: 12/31/21 Time of Service: 09:27 DS: Diagnosis Discharge Diagnosis (1) Cholelithiasis and cholecystitis without obstruction: Status: Acute Asessment and Plan: Improved with resuscitation and medical management. She needs to follow-up in the office for elective cholecystectomy (2) Acute gallstone pancreatitis: Status: Acute Asessment and Plan: Resolved with resolution of choledocholithiasis Discharge Plan Disposition Patient Disposition: HOME Condition: Good Discharge Details Reason For Visit: Gallstone Pancreatitis Admit Date/Time: 12/28/21 15:25 Admit Provider: Linda Hernandez Attending Provider: Linda Hernandez Hospital Course Hospital Course: Briefly, Romy is a 31-year-old woman who presented to the emergency department on December 29 with a chief complaint of an exacerbation of back discomfort, and more importantly nausea and vomiting. Liver function tests supporting the diagnosis of gallstone pancreatitis. She underwent a CAT scan of the abdomen and pelvis that demonstrated mild peripancreatic inflammation. She was admitted, intravenous fluids were used for resuscitation, and blood work was repeated the next day. The trend of her liver function test suggest the passage of the choledocholithiasis, and she had rapid improvement in her symptoms. By the morning of 12/31/2021, she was tolerating a regular diet with a normal serum bilirubin level and no abdominal pain. Home Meds and New Rx's Prescriptions: Continued prednisone 20 mg tablet 40 mg PO DAILY Qty: 10 0RF Discharge Instructions Referrals: Linda Hernandez, DO [OSTEOPATHIC DOCTOR] - Activity:: Activity as Tolerated Equipment/Supplies:: No Equipment Needed Diet:: low fat Discharge Orders Discharge Orders: Discharge Order (Routine); Ordered 12/31/21 Ordered By: Moy Almeida DS: Summary Time Spent with Patient providing and/or coordinating discharge services: Less than 30 minutes Status at Discharge Functional status at discharge: independent ambulation Overall status at discharge: patient is progressing back to baseline Mental Status: mental status grossly normal Speech and Movement: speech and movement normal Mood: congruent mood Affect: normal affect Exam Const General: cooperative, healthy appearing and comfortable Orientation: awake and oriented x3 Eyes General: appearance normal, both eyes and all related structures Conjunctivae: conjunctivae normal Sclera: sclerae normal Resp Effort & Inspection: normal respiratory effort and able to speak in complete sentences Cardio Jugular venous pressure: no JVD Rate: regular rate GI Inspection: non-distended Palpation: soft, no guarding, no hernias and nontender Auscultation: normal bowel sounds Skin General skin exam: normal turgor Neuro General: patient alert, patient awake and patient oriented x3 Cognition: normal cognition Extrem Right lower extremity: no edema Left lower extremity: no edema Psych Mental Status: mental status grossly normal Speech and Movement: speech and movement normal Mood: congruent mood Affect: normal affect DS: Data Vitals/I&O Vitals and I&O: Vital Signs Temperature 97.0 F L 12/31/21 08:09 Temperature Source Tympanic 12/31/21 08:09 Pulse 98 H 12/31/21 08:09 Pulse Rhythm Regular 12/31/21 07:54 Respiratory Rate 14 12/31/21 08:09 Respiratory Effort Non-Labored 12/31/21 07:54 Respiratory Depth Normal 12/31/21 07:54 Respiratory Pattern Normal 12/31/21 07:54 Blood Pressure 101/69 12/31/21 08:09 Blood Pressure Position Sitting 12/28/21 09:43 Pulse Oximetry 100 12/31/21 08:09 Oxygen Delivery Method Room Air 12/31/21 08:09 Oxygen Flow Rate 0 12/31/21 08:09 Pain Level 0 12/31/21 08:09 Intake & Output 12/30/21 12/30/21 12/31/21 11:59 23:59 11:59 Intake Total 1212 / 5224 4012 / 5224 302 / 302 Balance 1212 / 5224 4012 / 5224 302 / 302 Intake: IV 1212 / 3564 2352 / 3564 302 / 302 Oral 1660 / 1660 Other: Urine Color Yellow Urine Appearance Clear Clear Clear Urine Odor Normal Comment pt. stated that she has voided this morning. Pt voids independently. x2 at this time Stool Size Small Stool Characteristics Liquid Voiding Methods Toilet Toilet Data Completed and Pending Labs on day of discharge: Labs from last 24 hours 12/31/21 12/31/21 06:25 06:25 WBC 5.40 RBC 4.13 Hgb 12.0 Hct 36.4 MCV 88 MCH 29.1 MCHC 33.0 RDW 13.5 Plt Count 148 MPV 11.5 H Sodium 140 Potassium 3.7 Chloride 108 H Carbon Dioxide 24.4 Anion Gap 7.6 BUN 5 L Creatinine 0.5 L Estimated GFR/1.73 m2 >= 60.00 Glucose 104 Calcium 8.1 L Magnesium 2.0 Total Bilirubin 0.9 AST 17 ALT 171 H Alkaline Phosphatase 168 H C-Reactive Protein 6.79 H Total Protein 6.3 L Albumin 2.9 L PFSH All Active Problems Cholelithiasis and cholecystitis without obstruction (Acute) Acute gallstone pancreatitis (Acute) Thoracic radiculopathy (Acute) Appears to be secondary to pancreatitis History of gestational diabetes (Acute) General counseling and advice for contraceptive management (Acute) Lactating mother (Acute) Amenorrhea (Acute) (Acute) Gestational diabetes mellitus (GDM) affecting second (Acute) Active labor at term (Acute) Labor, prolonged latent phase (Acute) care following vaginal delivery (Acute) Elevated glucose level (Acute) Medical History Migraine Positive test Surgical History Dilation and curettage Family History Mother Thyroid disorder Sister Thyroid disorder Daughter Diabetes Type 1 DM diagnosed @ 1.5yo. 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 Date GA/Weeks # Preg Succ Route Wgt Sex Labor Lgth Anesth esia Location Prov [facility] 08/08/17 38 No vaginal 8 lb 14 oz Female 12 hrs nv rh al 01/16/19 9 No 10/03/20 38 No vaginal Male AMANDA Aldana Delivery Date: 08/08/17 Last Updated by: Basia Geller CNM symphysis pubis and coccygeal pain after delivery. Back labor. Long second stage. Used the tub. Armando Delivery Date: 01/16/19 Last Updated by: Amanda Rasheed M.D. miscarriage. Pt reports 3 early 1st trimester SABs since 12/2018 Delivery Date: 10/03/20 Last Updated by: LAYNE Abdalla
--- NOTE | 2021-12-31 15:16 | PDOC.CMDIS ---
- If Service Date Differs Date of service: 12/31/21 Time of Service: 15:16 LACE Index Scoring Tool - Questions: Length of Stay (in days): 3 Acuity (Admit via E.D.?): Yes E.D. Visits: 2 - Answers: Total Score: 8 Risk of Readmission: Low Risk Care Management Discharge Reason for Hospitalization: gallstone pancreatitis Discharge Plan: Pepe will return home today with no new services. Her will drive her home via private vehicle. She will follow up with Surgical Services, her PCP, and her discharge plan of care. She is happy to be going home. Patient/Family Education Needs: Review discharge instructions and limitations, discussion of self care needs including ask me three.
== END 2021-12-31 11:15 | disposition home or self-care (01) | DRG 444 ==
LOC: ER 15:32 → MS 16:24
PROVIDERS: Admitting Provider Surgery; Emergency Provider Physician Assistant; Visit Provider Surgery
DX: K80.10 Calculus of gallbladder with chronic cholecystitis without obstruction (principal); K85.10 Biliary acute pancreatitis without necrosis or infection; M54.14 Radiculopathy, thoracic region; D64.9 Anemia, unspecified; G43.909 Migraine, unspecified, not intractable, without status migrainosus; Z39.1 Encounter for care and examination of lactating mother
CPT/HCPCS: 36415; 36416; 80053; 80061; 81025; 83690; 85027; 86704; 86709; 86803; 87340; 87635; 93005; 96361; 96374; 96375; 99285; J1650; 74177; 81003; 83735; 85014; 85018; 85025; 86140; 93010; J0131; J2405; J3480; J3490

== ENCOUNTER 2022-02-26 06:04 | Day surgery (SDC) | payer OTHER, SELFPAY ==
[2022-02-26] VITALS (11 sets, daily range): BP systolic 95–119; BP diastolic 62–77; PULSE 53–86; RESP 12–28; TEMP 36.2–36.5; O2SAT 93–100; BMI 27.6
--- NOTE | 2022-02-26 05:30 | W.PM.HP.N ---
Date of service: 02/26/22 Time of Service: 07:13 Assessment and Plan Assessment and plan (1) Cholelithiasis and cholecystitis without obstruction: Status: Acute Assessment and plan: Laparoscopic cholecystectomy today History of Present Illness History of Present Illness Chief Complaint: Gallstones Narrative: Romy is a 31 year old woman who was hospitalized in the beginning of December with abdminal pain from cholelithiasis. She had gallstone pancreatitis. I recommended cholecystectomy but because of some social challenges and a young child at home, she elected to delay definitive surgery until now. She has done well with dietary changes to mnimize the symptoms of her gall stones. Review of Systems Constitutional Constitutional: Reports system reviewed and no additional complaints, except as documented Eyes Eyes: Reports system reviewed and no additional complaints, except as documented ENT Ears, Nose, Mouth, and Throat: Reports system reviewed and no additional complaints, except as documented Cardiovascular Cardiovascular: Reports system reviewed and no additional complaints, except as documented Respiratory Respiratory: Reports cough Comments: mild upper respiratory congestion is resolving Gastrointestinal Gastrointestinal: Reports system reviewed and no additional complaints, except as documented Musculoskeletal Musculoskeletal: Reports system reviewed and no additional complaints, except as documented Neurologic Neurologic: Reports system reviewed and no additional complaints, except as documented Psychiatric Psychiatric: Reports system reviewed and no additional complaints, except as documented Hematologic/Lymphatic Hematologic/Lymphatic: Reports system reviewed and no additional complaints, except as documented PFSH All Active Problems Acute gallstone pancreatitis (Acute) Cholelithiasis and cholecystitis without obstruction (Acute) History of gestational diabetes (Acute) General counseling and advice for contraceptive management (Acute) Lactating mother (Acute) Amenorrhea (Acute) (Acute) Active labor at term (Acute) Labor, prolonged latent phase (Acute) care following vaginal delivery (Acute) Elevated glucose level (Acute) Medical History Gestational diabetes mellitus (GDM) affecting second Migraine Positive test Surgical History Dilation and curettage Family History Mother Thyroid disorder Sister Thyroid disorder Daughter Diabetes Type 1 DM diagnosed @ 1.5yo. 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 Date GA/Weeks # Preg Succ Route Wgt Sex Labor Lgth Anesthesia Location Prov Complic 08/08/17 38 No vaginal 8 lb 14 oz Female 12 hrs nvrh al 01/16/19 9 No 10/03/20 38 No vaginal Male AMANDA Aldana Delivery Date: 08/08/17 Last Updated by: Basia Geller CNM symphysis pubis and coccygeal pain after delivery. Back labor. Long second stage. Used the tub. Armando Delivery Date: 01/16/19 Last Updated by: Amanda Rasheed M.D. miscarriage. Pt reports 3 early 1st trimester SABs since 12/2018 Delivery Date: 10/03/20 Last Updated by: LAYNE Abdalla Meds Allergies and Home Medications Allergies Allergy/AdvReac Type Severity Reaction Status Date / Time No Known Allergies Allergy Verified 02/26/22 06:14 Home Medications Medication Instructions Recorded Confirmed Type Unknown [No Known Home Meds] 01/06/22 02/25/22 History Exam Const General: cooperative, healthy appearing and comfortable Orientation: awake and oriented x3 Eyes General: appearance normal, both eyes and all related structures Conjunctivae: conjunctivae normal Sclera: sclerae normal Resp Effort & Inspection: normal respiratory effort and able to speak in complete sentences Auscultation: clear to auscultation bilaterally Cardio Jugular venous pressure: no JVD Rate: regular rate Rhythm: regular rhythm Heart Sounds: S1 normal and S2 normal GI Inspection: non-distended Palpation: soft, no guarding, no hernias and nontender Auscultation: normal bowel sounds Skin General skin exam: normal turgor Neuro General: patient alert, patient awake and patient oriented x3 Cognition: normal cognition Extrem Right lower extremity: no edema Left lower extremity: no edema
--- NOTE | 2022-02-26 05:35 | PDOC.DSDIS_ITS ---
Discharge Plan Disposition Patient Disposition: HOME Condition: Good Discharge Details Reason For Visit: cholecystectomy Attending Provider: Moy Almeida Primary Care Provider: Sabrina Concepcion Home Meds and New Rx's Prescriptions: New oxycodone 5 mg tablet 5 mg PO Q12H PRN (Reason: pain) Qty: 8 0RF Rx Instructions: Take only as needed for severe pain since this medication is highly addictive and should be used with great caution. Discharge Instructions Instructions: Laparoscopic Cholecystectomy (GEN) Additional Instructions: 1. Okay to use tylenol and ibuprofen over the counter as needed. 2. Use oxycodone as needed for pain. 3. Leave bandage in place for 24 hours, then remove. 4. Shower with warm soapy water. Pat dry. Use a bandaid if needed to protect your clothing. 5. No soaking or tub baths until I see you in the office. 6. No heavy lifting until I see you in the office. 7.Call the office (or go directly to the emergency room after hours) if you notice any of the following: Develop chills (warm to touch), or if you have a thermometer and your temperature is above 101 Difficulty breathing or difficultly swallowing Persistent vomiting Any bleeding ? exceeding one tablespoon 8. Call your physician if the site where your intravenous was started becomes red, swollen, painful, and warm to touch. Referrals: Moy Almeida MD [ [facility] STAFF PHYSICIAN] - Activity:: Activity as Tolerated Remove Dressings/Wound Care:: 24 hours Shower/Bathe:: 24 hours Diet:: As Tolerated Discharge Orders Discharge Orders: Discharge Order (Routine); Ordered 02/26/22 Ordered By: Moy Almeida DS: Diagnosis Discharge Diagnosis (1) Cholelithiasis and cholecystitis without obstruction: Status: Acute Asessment and Plan: Follow up in my office for laparoscopic cholecystectomy
--- NOTE | 2022-02-26 05:39 | W.PM.OP ---
Date of service: 02/26/22 Time of Service: 08:37 Operative Note Operative Note DATE OF PROCEDURE: 02/26/22 PRE-OP DIAGNOSIS: Gallstone pancreatitis POST-OP DIAGNOSIS: same PROCEDURE: Laparoscopic cholecystectomy SURGEON: Moy Almeida CLOTH BOIL OFF MACHINE OPERATOR: Dilia Sierra Refer to Anesthesia Record ESTIMATED BLOOD LOSS: 30 COMPLICATIONS: None Patient was transported to: PACU Indications: Romy is a 31-year-old woman with a history of gallstone pancreatitis. She presents for laparoscopic cholecystectomy to reduce the chances of recurrent pancreatitis Procedure Description: After satisfactory induction of general anesthesia, I prepped and draped the abdomen in usual fashion. Next, I began with a periumbilical incision. I dissected down to the fascia and elevated it with Dot clamps. I incised it sharply. Next, I passed a 12 mm operating port in the umbilical site. I secured it to the fascia with 0 Vicryl stitches. I then insufflated the peritoneal cavity. Next I inserted a 5 mm scope and examined the underlying viscera. There was no evidence of injury created upon entry. I then placed the patient in some reverse Trendelenburg and left side down positioning. Then, with the assistance of the laparoscope, I used local anesthetic to anesthetize the midepigastric and 2 right upper quadrant port sites. Under the vision of the laparoscope, I passed 3 more 5 mm ports. I then grasped the gallbladder fundus and elevated cephalad. I began by dissecting the gallbladder infundibulum. There was quite a bit of adhesions from the greater omentum onto the gallbladder. This required some tedious dissection to safely identify the gallbladder wall and traced it down onto the infundibulum. I worked in a lateral to medial fashion. Once I skeletonized the cystic duct and cystic artery, with a satisfactory critical view of safety, I doubly clipped and divided them. I then used electrocautery to dissect the gallbladder off the gallbladder fossa. I passed the gallbladder into an Endo Catch bag and removed it by way of the umbilical site. I examined the surgical field. It was hemostatic. I then removed the 5 mm ports under the vision of the laparoscope. Finally, I removed the umbilical port site and closed the fascia with Vicryl stitches. Sites were irrigated, and the skin was closed with subcuticular stitches. Bandages were applied, patient was awakened from anesthesia, and transferred to the recovery unit.
[2022-02-26] MEDS: Lactated Ringers 1,000 ML 80 ML IV (06:41)
--- NOTE | 2022-02-26 07:02 | ANES.PREOP_ITS ---
General Info Date of Service Date Performed: 02/26/22 Height: 5 ft 7 in Weight: 79.9 kg Body Mass Index (BMI): 27.6 Surgical Procedure: Operation Date: 02/26/22 07:40 Proposed Procedure Side Surgeon p Cholecystectomy Laparoscopic Moy Almeida MD Meds Allergies and Home Medications Allergies Allergy/AdvReac Type Severity Reaction Status Date / Time No Known Allergies Allergy Verified 02/26/22 06:14 Home Medication Medication Instructions Recorded Unknown [No Known Home Meds] 01/06/22 Current Visit Medications: Current Medications Generic Name Dose Route Start Last Admin Trade Name Freq PRN Reason Stop Dose Admin Acetaminophen 1,000 mg 02/26/22 06:00 Acetaminophen 500 Mg Tab PO 02/26/22 16:00 PREOP DAVION Acetaminophen 650 mg 02/26/22 05:37 Acetaminophen 325 Mg Tab PO Q4H PRN PRN Celecoxib 200 mg 02/26/22 06:00 Celecoxib 200 Mg Cap PO 02/26/22 16:00 PREOP DAVION Gabapentin 600 mg 02/26/22 06:00 Gabapentin 300 Mg Cap PO 02/26/22 16:00 PREOP DAVION Hydromorphone HCl 0.2 mg 02/26/22 05:37 Hydromorphone 2 Mg/Ml Syr IVP Q1H PRN PRN Ringer's Solution 1,000 mls @ 80 mls/hr 02/26/22 06:00 02/26/22 06:41 IV 03/27/22 23:59 80 mls/hr INFUSION [facility] Administration Cefazolin Sodium/Dextrose 2 gm in 50 mls @ 100 mls/hr 02/26/22 06:00 Ancef Duplex IVPB 02/26/22 16:00 PREOP [facility] Ondansetron HCl 8 mg/ Sodium 54 mls @ 200 mls/hr 02/26/22 05:37 Chloride IVPB Q6H PRN PRN IV Miscellaneous Supplies 1 each 02/26/22 06:00 Iv Access IV 03/27/22 23:59 DIRECTED DAVION Oxycodone HCl 5 mg 02/26/22 05:37 Oxycodone 5 Mg Tab PO Q3H PRN PRN Pain Sodium Chloride 0 ml 02/26/22 06:00 Normal Saline Flush 10 Ml Syr IV 03/27/22 23:59 PRN PRN Sodium Chloride 0 ml 02/26/22 06:00 Normal Saline 10 Ml Vial IJ 03/27/22 23:59 DIRECTED PRN Sterile Water 0 ml 02/26/22 06:00 Water,Injection,Sterile 10 Ml Vial IJ 03/27/22 23:59 DIRECTED PRN PFSH Active Problems Active Problems: Problem Status Onset Code Acute gallstone pancreatitis K85.10 Cholelithiasis and cholecystitis without obstruction K80.10 History of gestational diabetes Z86.32 General counseling and advice for contraceptive management Z30.09 Lactating mother Z39.1 Amenorrhea N91.2 Z34.90 Active labor at term Labor, prolonged latent phase O63.0 care following vaginal delivery Z39.2 Elevated glucose level R73.09 Medical History Medical History Gestational diabetes mellitus (GDM) affecting second Migraine Positive test Surgical History Surgical History Dilation and curettage Tobacco Smoking/Tobacco Use Status: Never Passive smoking exposure: No Alcohol Alcohol Intake: never Substance Use Substance use: Never Substance use type: does not use Prental History History 4 Para 1 Hx # Term Pregnancies 2 Multiple births 0 Hx # Pregnancies 0 Ectopic pregnancies 0 AB induced 0 Hx Number of Living Children 1 AB spontaneous 4 Past Pregnancies Del. Date GA/Weeks # Preg Succ Route Wgt Sex Labor Lgth Anesth esia Location [facility] 08/08/17 38 No vaginal 4025.632 g Female 12 hrs nv rh al 01/16/19 9 No 10/03/20 38 No vaginal Male AMANDA Aldana Delivery Date: 08/08/17 Last Updated by: Basia Geller CNM symphysis pubis and coccygeal pain after delivery. Back labor. Long second stage. Used the tub. Armando Delivery Date: 01/16/19 Last Updated by: Amanda Rasheed M.D. miscarriage. Pt reports 3 early 1st trimester SABs since 12/2018 Delivery Date: 10/03/20 Last Updated by: LAYNE Abdalla Vital Signs and Lab Results Vital Signs Most Recent Vital Signs in EMR: Most Recent Vital Signs Temp Pulse Resp BP Pulse Ox 36.4 C L 75 16 108/68 99 02/26/22 06:15 02/26/22 06:15 02/26/22 06:15 02/26/22 06:15 02/26/22 06:15 Point of Care Results Point of Care Results: POC- Test(urine) Negative 02/26/22 06:31 Lab Results Blood Type / Crossmatch: No Data to Display Complete Blood Count: No Data to Display Complete Metabolic Panel: No Data to Display Liver Function Panel: No Data to Display Coagulation Panel: No Data to Display Cardiac Panel: No Data to Display Arterial Blood Gas: No Data to Display Venous Blood Gas: No Data to Display Pancreas Panel: No Data to Display Thyroid Panel: No Data to Display Infectious Disease: No Data to Display Blood Cultures: No Data to Display Toxicology Panel: No Data to Display Panel: No Data to Display Anesthesia Assessment and Plan Anesthesia History Personal History: No History of Anesthesia Complications Family History: No Family History of Anesthesia Complications Exercise Tolerance Exercise Tolerance: Metabolic Equivalents>4 Pertinent Negatives Pertinent Negatives: No Symptoms of GERD, No Major Cardiovascular Symptoms or Complaints and No Major Pulmonary Symptoms or Complaints Cardiac & Pulmonary Exam Cardiac Exam: Normal S1/S2 Heart Sounds Pulmonary Exam: Clear Bilateral Breath Sounds Implantable Cardiac Device Does patient have a Pacemaker or an ICD?: No Airway Exam Known Difficult Airway: No Mallampati Class: 1 Mouth Opening: Normal (> 3cm) Thyromental Distance: Greater than 3 cm Neck Range of Motion: Full ROM Neck Circumference: Normal Teeth Condition: Normal Dentition ASA Classification ASA Score: ASA 2 Emergency Case?: No NPO Status NPO Status: NPO Clears >2 hours, Solids >8 hours Status Status: Negative HCG Anesthesia Plan Resuscitation Status: Full Code Anesthesia Technique: General Anesthesia Airway Planned: Endotracheal Tube Monitors Used: Standard Monitors
[2022-02-26] MEDS: Acetaminophen 500 MG TAB 1000 MG PO (07:09)
[2022-02-26] MEDS: Celecoxib 200 MG CAP PO (07:09)
[2022-02-26] MEDS: Gabapentin 300 MG CAP 600 MG PO (07:09)
[2022-02-26] MEDS: ceFAZolin 2 GM/50 ML BAG IVPB (07:29)
--- NOTE | 2022-02-26 08:25 | GB_PTH ---
PATIENT: Romy Camejo LOC: [facility] U#:[id number] AGE/SX: 31/F ROOM: RE02/26/[address]: Moy Almeida MD : 1990 BED: DIS: 02/26/2022 SPEC #: [id number] RECD: 02/26/22 12:32 STATUS: CARLOS REQ #: [id number] CATHERINE: 02/26/22 08:[address]: Moy Almeida DEPT: Surgical Specimen RECD BY: Kianna Tolbert ENTERED: 02/26/22 12:33 SP TYPE: GB OTHR DR: Sabrina Concepcion Tissues: 1 - GALLBLADDER Procedures: GROSS AND MICRO LEVEL 3 Comments: [id number]
[2022-02-26] MEDS: Bupivacaine 0.25% Pres-Free 30 ML VIAL (08:28)
[2022-02-26] MEDS: Droperidol 5 MG/2 ML VIAL 0.625 MG IVP (09:28)
[2022-02-26] MEDS: fentaNYL 100 MCG/2 ML VIAL IVP (09:40)
--- NOTE | 2022-02-26 11:34 | W.ANESPOSTOP ---
Postoperative Evaluation Date, Time and Location Date Performed: 02/26/22 Time Performed: 11:34 Patient Location: Day Surgery Unit Vital Signs Most Recent Imported Vital Signs: Most Recent Vital Signs Temp Pulse Resp BP Pulse Ox 36.2 C L 86 16 114/66 100 02/26/22 10:37 02/26/22 10:37 02/26/22 10:37 02/26/22 10:37 02/26/22 10:37 Pain Score Most Recent Pain Score: Most Recent Pain Score Pain Level 0 02/26/22 10:37 Assessment Mental Status: Awake (Alert & Oriented to Patient Baseline) Airway and Respiratory Function: Patent airway with normal (patient baseline) respiratory exam Cardiovascular Function: Hemodynamically Stable Hydration Status: Adequately Hydrated Nausea & Vomiting: No Nausea or Vomiting Pain: Pt. Denies Any Pain Peripheral Nerve Block: Patient did not receive a nerve block Postoperative Comments:: Slight nausea but improving since ate crackers and sipped jake мария
== END 2022-02-26 11:40 | disposition home or self-care (01) ==
PROVIDERS: PCP Nurse Practitioner Family; Visit Provider Surgery
PROC: 0FT44ZZ Resection of Gallbladder, Percutaneous Endoscopic Approach (ICD-10-PCS; CPT 47562; principal; 2022-02-26 07:30)
DX: K85.10 Biliary acute pancreatitis without necrosis or infection; K82.8 Other specified diseases of gallbladder; K80.10 Calculus of gallbladder with chronic cholecystitis without obstruction
CPT/HCPCS: 47562; 81025; 88304; J0690; J1100; J1790; J1885; J2250; J2405; J2704; J3010